=== PATIENT | male | born 1960 | race Caucasian/White ===

== ENCOUNTER 2021-04-08 06:05 | Emergency (ER) | payer OTHER ==
[~2021-04-08] VITALS: Ht 172.7 cm; Wt 81.7 kg
[2021-04-08] MEDS ORDERED: HYDR1TAB94 PO (08:06)
== END 2021-04-08 08:22 | disposition home or self-care (01) ==
LOC: ER 06:05
DX: K40.90 Unilateral inguinal hernia, without obstruction or gangrene, not specified as recurrent (principal); I11.0 Hypertensive heart disease with heart failure; I50.9 Heart failure, unspecified; Z88.8 Allergy status to other drugs, medicaments and biological substances
CPT/HCPCS: 36415; 76857; 96374; 96375; 99284-25; J2270; J2405

== ENCOUNTER 2021-04-08 16:26 | Inpatient (IN) | payer OTHER ==
[~2021-04-08] VITALS: Ht 175.3 cm; Wt 86.0 kg
[~2021-04-08 16:26] MED LIST: HYDR1TAB94 PO
[2021-04-08 17:27] LABS: Source, Urine Catheter
[2021-04-08 17:30] LABS: BASOPHILS ABSOLUTE AUTO 0.07 K/mm3 (0.00-0.23); BASOPHILS PERCENT AUTO 1 % (0-2); EOSINOPHILS ABSOLUTE AUTO 0.11 K/mm3 (0.00-0.68); EOSINOPHILS PERCENT AUTO 1 % (0-6); Hematocrit 36.7 % (37.0-53.0); Hemoglobin 12.4 g/dL (13.5-17.5); IMMATURE GRAN ABSOLUTE AUTO 0.04 K/mm3 (0.00-0.10); IMMATURE GRAN PERCENT AUTO 0 % (0-1); LYMPHOCYTES ABSOLUTE AUTO 0.99 K/mm3 (0.84-5.20); LYMPHOCYTES PERCENT AUTO 7 % (21-46); MONOCYTES ABSOLUTE AUTO 0.88 K/mm3 (0.16-1.47); MONOCYTES PERCENT AUTO 7 % (4-13); Mean Corpuscular HGB 28.6 pg (26.0-34.0); Mean Corpuscular HGB Conc 33.8 g/dL (31.5-36.5); Mean Corpuscular Volume 85 fL (80-100); Mean Platelet Volume 9.1 fL (9.1-12.4); NEUTROPHILS ABSOLUTE AUTO 11.26 K/mm3 (1.96-9.15); NEUTROPHILS PERCENT AUTO 84 % (41-73); Platelet Count 300 K/mm3 (150-400); RDW Coefficient Variation 15.1 % (11.7-14.2); RDW Standard Deviation 46.5 fL (35.1-46.3); Red Blood Cell Count 4.34 M/mm3 (4.30-5.90); White Blood Cell Count 13.35 K/mm3 (4.00-11.30)
[2021-04-08 17:34] LABS: Appearance, Urine Clear (Clear); Bilirubin, Urine Neg (Neg); Blood, Urine 4+ (Neg); Color, Urine Yellow (P-Yellow); Glucose Qualitative, Urine Neg (Neg); Ketones, Urine 1+ (Neg); Leukocyte Esterase, Urine Neg (Neg); Nitrite, Urine Neg (Neg); Protein, Urine 4+ (Neg); Urobilinogen, Urine NORM (Normal)
[2021-04-08 17:40] LABS: White Blood Cells, Urine 0-2 /hpf (0-5)
[2021-04-08 17:41] LABS: Bacteria Few /hpf; Hyaline Casts 0-2 /lpf (0-2); Squamous Epithelial Cells Rare /hpf (Few)
[2021-04-08 17:56] LABS: Anion Gap 11 mmol/L (6-16); Blood Urea Nitrogen 43 mg/dL (8-24); Bun/Creatinine Ratio 9.9 (12.0-20.0); CO2, Blood 20 mmol/L (21-32); Chloride, Blood 102 mmol/L (98-108); Creatinine, Blood 4.34 mg/dL (0.60-1.20); Glomerular Filtration Rate 14 (60-); Glucose, Blood 132 mg/dL (70-99); Potassium, Blood 3.4 mmol/L (3.5-5.5); Sodium, Blood 133 mmol/L (136-145)
[2021-04-08 17:58] LABS: Calcium, Blood <5.0 mg/dL (8.5-10.1)
[2021-04-08 18:19] LABS: Magnesium, Blood 2.3 mg/dL (1.6-2.4); Phosphorus, Blood 5.4 mg/dL (2.5-4.9)
[2021-04-08 22:38] LABS: Anion Gap 11 mmol/L (6-16); Blood Urea Nitrogen 44 mg/dL (8-24); Bun/Creatinine Ratio 9.9 (12.0-20.0); CHOL/HDL RATIO 3.4; CO2, Blood 21 mmol/L (21-32); Chloride, Blood 103 mmol/L (98-108); Cholesterol 160 mg/dL (50-200); Creatinine, Blood 4.43 mg/dL (0.60-1.20); Glomerular Filtration Rate 14 (60-); Glucose, Blood 114 mg/dL (70-99); HDL Cholesterol 47 mg/dL (>39); LDL/HDL RATIO 1.9; Low Density Lipoprotein Chol 89 mg/dL (0-110); Potassium, Blood 3.3 mmol/L (3.5-5.5); Sodium, Blood 135 mmol/L (136-145); Triglycerides 118 mg/dL (30-160); Very Low Density Lipoprot Chol 23 mg/dL (6-32)
[2021-04-08 23:00] LABS: Calcium, Blood 5.2 mg/dL (8.5-10.1)
[2021-04-09 04:31] LABS: BASOPHILS ABSOLUTE AUTO 0.06 K/mm3 (0.00-0.23); BASOPHILS PERCENT AUTO 0 % (0-2); EOSINOPHILS ABSOLUTE AUTO 0.15 K/mm3 (0.00-0.68); EOSINOPHILS PERCENT AUTO 1 % (0-6); Hematocrit 38.1 % (37.0-53.0); Hemoglobin 12.6 g/dL (13.5-17.5); IMMATURE GRAN ABSOLUTE AUTO 0.04 K/mm3 (0.00-0.10); IMMATURE GRAN PERCENT AUTO 0 % (0-1); LYMPHOCYTES ABSOLUTE AUTO 1.26 K/mm3 (0.84-5.20); LYMPHOCYTES PERCENT AUTO 9 % (21-46); MONOCYTES ABSOLUTE AUTO 1.04 K/mm3 (0.16-1.47); MONOCYTES PERCENT AUTO 7 % (4-13); Mean Corpuscular HGB 28.4 pg (26.0-34.0); Mean Corpuscular HGB Conc 33.1 g/dL (31.5-36.5); Mean Corpuscular Volume 86 fL (80-100); Mean Platelet Volume 9.2 fL (9.1-12.4); NEUTROPHILS ABSOLUTE AUTO 11.93 K/mm3 (1.96-9.15); NEUTROPHILS PERCENT AUTO 82 % (41-73); Platelet Count 300 K/mm3 (150-400); RDW Standard Deviation 47.3 fL (35.1-46.3); Red Blood Cell Count 4.44 M/mm3 (4.30-5.90); White Blood Cell Count 14.48 K/mm3 (4.00-11.30)
[2021-04-09 04:42] LABS: Bun/Creatinine Ratio 10.4 (12.0-20.0); Calcium, Blood 6.4 mg/dL (8.5-10.1); Creatinine, Blood 4.32 mg/dL (0.60-1.20); Potassium, Blood 3.2 mmol/L (3.5-5.5)
--- NOTE | 2021-04-09 07:29 | NUR ---
SHIFT SUMMARY PATIENT IS RESTING IN BED COMFORTABLY. BED IS IN LOW POSITION. CALL LIGHT IS IN REACH. THE PATIENT COMPLAINED OF DISCOMFORT IN THE SCROTUM AREA BUT DUE TO THE R INGUINAL HERNIA IT MOVED TO THE SCOTUM AND IT IS ENLARGED NOW. THE PATIENT'S VITALS WERE STABLE EXCEPT THE BLOOD PRESSURE. HIS BLOOD PRESSURE WAS TREATED WITH PRN MEDICATION WHICH HELP FOR AWHILE THEN HIS BLOOD PRESSURE STARTED CLIMBING AGAIN AND STAYED UP. THE PATIENT WAS ASYSMPTOMATIC AND SLEEPING MOST OF THE NIGHT. NO ACUTE CHANGES DURING THE NIGHT. THE PATIENT WAS A NEW ADMIT TO THE FLOOR AND HE WAS ORIENTED TO THE ROOM AND STAFF. THE PATIENT CURRENTLY HAS A HEALY CATHERTER HE COMPLAINED OF DISCOMFORT BUT THE STAT LOCK WAS MOVED TO HELP CREAT A LOOP AND PATIENT HAS NOT COMPLAINED OF PAIN AFTER THAT. THE PATIENT HAD VERY LOW CALCIUM WHICH WAS REPLACE. WILL CONTINUE TO MONITOR. REPORT WAS GIVEN TO DAY SHIFT RN.
--- NOTE | 2021-04-09 07:32 | NUR ---
04/08/21 2320 - DR MEYER WAS NOTIFED OF THE PATIENT'S CRITICALLY LOW CALCIUM OF 5.2. NEW ORDERS WERE PUT IN FOR CALCIUM AND POTASSIUM. 04/09/21 0425 - DR MEYER WAS NOTIFIED THE PATIENT WAS HYPERTENSIVE MOST OF THE NIGHT. SHE WAS INFORMED PRN 20MG OF HYDRALAZINE WAS ADMINISTERED WHICH HELPED FOR A WHILE THEN HIS BLOOD PRESSURE WENT BACK UP. ANOTHER 10MG WAS GIVEN AT 0310 WHICH DID DROPPED HIS BLOOD PRESSURE FROM 180 SYSTOLIC TO HIGH 160 SYSTOLIC. SHE STATED RN SHOULD RECHECK IN 30 MINUTES THEN ORDER A ONE TIME DOES OF 10MG HYDRALAZINE IF THE BLOOD PRESSURE IS NOT BELOW 160 SYSTOLIC. 04/09/21 0530 - THE RECHECK BLOOD PRESSURE WAS 170/102 A NEW ORDER OF HYDRALAZINE WAS ORDERED AND LATER GIVEN. BLOOD PRESSURE WAS IN THE LOW 160 SYSTOLIC BUT DID NOT GO GET LOWER THAN 160 SYSTOLIC DAY SHIFT RN WAS NOTIFIED.
[2021-04-09 08:51] LABS: U Amphetamine Screen Not Detected; U Barbituate Screen Not Detected; U Benzodiazapine Screen Not Detected; U Buprenorphine Screen Not Detected; U Cannabinoids Screen DETECTED; U Cocaine Screen Not Detected; U Methadone Screen Not Detected; U Methamphetamine Screen Not Detected; U Opiates Screen DETECTED; U Oxycodone Screen Not Detected; U Phencyclidine Screen Not Detected; U Propoxyphene Screen Not Detected
--- NOTE | 2021-04-09 11:16 | NUR ---
Echocardiogram completed.
--- NOTE | 2021-04-09 18:00 | NUR ---
SHIFT SUMMARY; ASSUMED CARE AT 0700, SLEEPS THROUGHT MOST OF DAY. WAKES FOR MEALS. A/A/0X4. RIGHT INGUINAL HERNIA NOTED WITH LARGLY SWOLLEN SCROTOM. HEALY CATH IN PLACE DRAINING TO GRAVITY. DR. WALKER ANSWERING SERVICE NOTIFIED OF SURGICAL CONSULT ORDERED. BP IMPROVED FROM PREVIOUS SHIFT. ORAL BP MEDS STARTED THIS AM. IV FLUIDS INFUSING AT 75ML/HR. WILL CONTINUE TO MONITOR AND TREAT UNTIL CHANGE OF SHIFT.
[2021-04-09 18:05] LABS: Albumin, Blood 2.8 g/dL (3.4-5.0); Anion Gap 11 mmol/L (6-16); Blood Urea Nitrogen 43 mg/dL (8-24); CO2, Blood 21 mmol/L (21-32); Chloride, Blood 108 mmol/L (98-108); Creatinine, Blood 4.28 mg/dL (0.60-1.20); Glomerular Filtration Rate 14 (60-); Glucose, Blood 98 mg/dL (70-99); Magnesium, Blood 2.3 mg/dL (1.6-2.4); Phosphorus, Blood 4.8 mg/dL (2.5-4.9); Potassium, Blood 3.2 mmol/L (3.5-5.5); Sodium, Blood 140 mmol/L (136-145)
[2021-04-10 04:09] LABS: BASOPHILS ABSOLUTE AUTO 0.04 K/mm3 (0.00-0.23); BASOPHILS PERCENT AUTO 0 % (0-2); EOSINOPHILS ABSOLUTE AUTO 0.15 K/mm3 (0.00-0.68); EOSINOPHILS PERCENT AUTO 1 % (0-6); Hematocrit 35.1 % (37.0-53.0); Hemoglobin 11.5 g/dL (13.5-17.5); IMMATURE GRAN ABSOLUTE AUTO 0.04 K/mm3 (0.00-0.10); IMMATURE GRAN PERCENT AUTO 0 % (0-1); LYMPHOCYTES ABSOLUTE AUTO 1.12 K/mm3 (0.84-5.20); LYMPHOCYTES PERCENT AUTO 11 % (21-46); MONOCYTES PERCENT AUTO 9 % (4-13); Mean Corpuscular HGB 28.6 pg (26.0-34.0); Mean Corpuscular HGB Conc 32.8 g/dL (31.5-36.5); Mean Corpuscular Volume 87 fL (80-100); Mean Platelet Volume 9.1 fL (9.1-12.4); NEUTROPHILS ABSOLUTE AUTO 8.32 K/mm3 (1.96-9.15); NEUTROPHILS PERCENT AUTO 79 % (41-73); Platelet Count 245 K/mm3 (150-400); RDW Coefficient Variation 15.5 % (11.7-14.2); RDW Standard Deviation 49.7 fL (35.1-46.3); Red Blood Cell Count 4.02 M/mm3 (4.30-5.90); White Blood Cell Count 10.57 K/mm3 (4.00-11.30)
[2021-04-10 04:28] LABS: Albumin, Blood 2.6 g/dL (3.4-5.0); Anion Gap 9 mmol/L (6-16); Blood Urea Nitrogen 44 mg/dL (8-24); Bun/Creatinine Ratio 10.9 (12.0-20.0); CO2, Blood 20 mmol/L (21-32); Calcium, Blood 6.1 mg/dL (8.5-10.1); Chloride, Blood 111 mmol/L (98-108); Creatinine, Blood 4.03 mg/dL (0.60-1.20); Glomerular Filtration Rate 15 (60-); Glucose, Blood 97 mg/dL (70-99); Magnesium, Blood 2.3 mg/dL (1.6-2.4); Phosphorus, Blood 4.7 mg/dL (2.5-4.9); Potassium, Blood 3.2 mmol/L (3.5-5.5); Sodium, Blood 140 mmol/L (136-145)
--- NOTE | 2021-04-10 06:16 | NUR ---
SHIFT SUMMARY PATIENT IS RESTING IN BED COMFORTABLY IN BED. BED IS IN LOW POSITION. CALL LIGHT IS IN REACH. HEALY CATHETER IS IN PLACE AND DRAINING TO GRAVITY. COMPLAINS OF DISCOMFORT DUE TO SWOLLEN SCROTUM. VITAL WERE STABLE EXCEPT HIS BLOOD PRESSURE ON ORAL MEDICATION WHICH HELPED A LITTLE BIT BUT RN NEEDED TO GIVE IV PRN BLOOD PRESSURE MEDICATION WHICH HELPED A LITTLE BIT. NO ACUTE EVENTS DURING THE NIGHT. STILL GETTING GENTLE HYDARTION. PATIENT DID WELL DURING THE NIGHT NO COMPLAINTS OF PAIN ONLY DISCOMFORT FROM ENLARGED SCROTUM. WILL CONTINUE TO MONITOR. REPORT WILL BE GIVEN TO DAY SHIFT RN.
--- NOTE | 2021-04-10 09:10 | NUR ---
ASSUMED CARE OF PATIENT AT APPROX 0700. ELEVATED BP NOTED, OTHER VSS. PT LEFT A/C PIV INFILTRATED; REMOVED AND ICED; NOTIFIED PHARMACY. NEW IV PLACED GONZALEZ; RUNNING KCL AT 1/2 RATE CONCURRENT WITH NS. REPORT GIVE[facility]merica TORRES RN ASSUMING CARE OF PATIENT.
--- NOTE | 2021-04-10 16:45 | NUR ---
SHIFT SUMMARY THIS RN ASSUMED CARE AT 0830 FROM LORETTA PADILLA. PATIENT IS A/OX4. VSS. PATIENT REPORTS NO PAIN, CHEST PAIN, OR SOB. PATIENT HAS A SWOLLEN SCROTUM. HEALY CATH IN PLACE DRAINING WITH GRAVITY, YELLOW. BED IN LOWEST POSITION AND CALL LIGHT WITHIN REACH. WILL CONTINUE TO MONITOR AND PROVIDE CARE UNTIL HAND OFF.
[2021-04-11 04:48] LABS: Hematocrit 34.9 % (37.0-53.0); Hemoglobin 11.4 g/dL (13.5-17.5); Mean Corpuscular HGB 28.9 pg (26.0-34.0); Mean Corpuscular HGB Conc 32.7 g/dL (31.5-36.5); Mean Corpuscular Volume 89 fL (80-100); Mean Platelet Volume 9.4 fL (9.1-12.4); Platelet Count 242 K/mm3 (150-400); RDW Coefficient Variation 15.7 % (11.7-14.2); RDW Standard Deviation 51.2 fL (35.1-46.3); Red Blood Cell Count 3.94 M/mm3 (4.30-5.90); White Blood Cell Count 11.11 K/mm3 (4.00-11.30)
[2021-04-11 05:24] LABS: Albumin, Blood 2.5 g/dL (3.4-5.0); Albumin/Globulin Ratio 0.7 (0.8-1.8); Bilirubin, Total 0.6 mg/dL (0.1-1.0); Bun/Creatinine Ratio 11.1 (12.0-20.0); Calcium, Blood 6.4 mg/dL (8.5-10.1); Creatinine, Blood 3.8 mg/dL (0.60-1.20); Globulin, Blood 3.7 g/dL (2.2-4.0); Phosphorus, Blood 3.5 mg/dL (2.5-4.9); Potassium, Blood 3.5 mmol/L (3.5-5.5); Total Protein, Blood 6.2 g/dL (6.4-8.2)
--- NOTE | 2021-04-11 06:49 | NUR ---
SHIFT SUMMARY PATIENT IS RESTING IN BED COMFORTABLY IN BED. BED IS IN LOW POSITION. CALL LIGHT IS IN REACH. HEALY CATHETER IS IN PLACE AND DRAINING TO GRAVITY. COMPLAINS OF DISCOMFORT DUE TO SWOLLEN SCROTUM. VITAL WERE STABLE EXCEPT HIS BLOOD PRESSURE ON ORAL MEDICATION WHICH HELPED A LITTLE BIT BUT RN NEEDED TO GIVE IV PRN BLOOD PRESSURE MEDICATION WHICH HELPED THIS MORNING. NO ACUTE EVENTS DURING THE NIGHT. STILL GETTING GENTLE HYDARTION. PATIENT DID WELL DURING THE NIGHT NO COMPLAINTS OF PAIN ONLY DISCOMFORT FROM ENLARGED SCROTUM. WILL CONTINUE TO MONITOR. REPORT WILL BE GIVEN TO DAY SHIFT RN.
--- NOTE | 2021-04-11 14:05 | NUR ---
Met pt .i bed resting reports doing better prayed for pt.
--- NOTE | 2021-04-11 17:59 | NUR ---
SHIFT SUMMARY PT HAS RESTED IN BED ALL DAY. PT HAS BEEN CRYING OUT FOR HELP AND MOANING CONSISTENTLY THROUGHOUT THE DAY. WHEN ASKED ABOUT PAIN, PT WILL DENY ANY PAIN, WHEN ASKED ABOUT SPECIFIC LOCATIONS OF PAIN, PT WILL STATE THAT "THIS TUBE HURTS" REFERENCING THE HEALY CATHETER. PT HAS CONSISTENTLY REPOSITIONED SELF IN BED. PT HAS CONSISTENTLY BEEN HYPERTENSIVE, MAX OF 179/89, LOW OF 127/70 AFTER TREATMENT PER EMAR. ALL OTHER VITAL SIGNS STABLE.
[2021-04-12 05:14] LABS: Hematocrit 36.5 % (37.0-53.0); Hemoglobin 11.7 g/dL (13.5-17.5); Mean Corpuscular HGB 28.7 pg (26.0-34.0); Mean Corpuscular HGB Conc 32.1 g/dL (31.5-36.5); Mean Corpuscular Volume 90 fL (80-100); Mean Platelet Volume 9.7 fL (9.1-12.4); Platelet Count 248 K/mm3 (150-400); RDW Coefficient Variation 15.8 % (11.7-14.2); RDW Standard Deviation 51.7 fL (35.1-46.3); Red Blood Cell Count 4.07 M/mm3 (4.30-5.90)
[2021-04-12 05:52] LABS: Albumin, Blood 2.6 g/dL (3.4-5.0); Anion Gap 10 mmol/L (6-16); Blood Urea Nitrogen 42 mg/dL (8-24); Bun/Creatinine Ratio 12.5 (12.0-20.0); CO2, Blood 18 mmol/L (21-32); Calcium, Blood 6.8 mg/dL (8.5-10.1); Chloride, Blood 115 mmol/L (98-108); Creatinine, Blood 3.35 mg/dL (0.60-1.20); Ferritin, Serum 150 ng/mL (26-388); Glomerular Filtration Rate 19 (60-); Glucose, Blood 102 mg/dL (70-99); Iron Serum 36 ug/dL (65-175); Magnesium, Blood 1.8 mg/dL (1.6-2.4); Percent Saturation 20.5 % (20.0-50.0); Phosphorus, Blood 3.2 mg/dL (2.5-4.9); Potassium, Blood 3.6 mmol/L (3.5-5.5); Sodium, Blood 143 mmol/L (136-145); Total Iron Binding Capacity 176 ug/dL (250-450)
--- NOTE | 2021-04-12 07:51 | NUR ---
SHIFT SUMMARY PATIENT IS RESTING IN BED COMFORTABLY IN BED. BED IS IN LOW POSITION. CALL LIGHT IS IN REACH. HEALY CATHETER IS IN PLACE AND DRAINING TO GRAVITY. COMPLAINS OF DISCOMFORT DUE TO SWOLLEN SCROTUM. VITAL WERE STABLE EXCEPT HIS BLOOD PRESSURE ON ORAL MEDICATION WHICH HELPED A LITTLE BIT BUT RN NEEDED TO GIVE IV PRN BLOOD PRESSURE MEDICATION WHICH HELPED THIS MORNING. NO ACUTE EVENTS DURING THE NIGHT. STILL GETTING GENTLE HYDARTION. PATIENT DID WELL DURING THE NIGHT NO COMPLAINTS OF PAIN ONLY DISCOMFORT FROM ENLARGED SCROTUM AND STAT LOCK WAS REPOSITIONED WHICH PATIENT STATED HELPED. WILL CONTINUE TO MONITOR. REPORT WILL BE GIVEN TO DAY SHIFT RN.
--- NOTE | 2021-04-13 03:50 | NUR ---
RECEIVED PT IN BED AAO. C/O OF PAIN TO SCROTUM. TYLENOL GIVEN WITH GOOD EFFECT. HOWEVER, PT C/O OF INCREASED PAIN AFTER AMBULATION TO BATHROOM. HYDROCODONE GIVEN WITH GOOD EFFECT. IVF PATENTLY INFUSING. MONET PATENT. PT IS LOUD, IMPULSIVE, AND ANGRY AT TIMES. CALL LIGHT WITHIN REACH. SAFETY MEASURES MAINTAINED.
[2021-04-13 04:13] LABS: Hematocrit 35.4 % (37.0-53.0); Hemoglobin 11.2 g/dL (13.5-17.5); Mean Corpuscular HGB 28.4 pg (26.0-34.0); Mean Corpuscular HGB Conc 31.6 g/dL (31.5-36.5); Mean Corpuscular Volume 90 fL (80-100); Mean Platelet Volume 9.7 fL (9.1-12.4); Platelet Count 252 K/mm3 (150-400); RDW Coefficient Variation 15.6 % (11.7-14.2); RDW Standard Deviation 51.8 fL (35.1-46.3); Red Blood Cell Count 3.94 M/mm3 (4.30-5.90); White Blood Cell Count 9.97 K/mm3 (4.00-11.30)
[2021-04-13 04:34] LABS: Albumin, Blood 2.5 g/dL (3.4-5.0); Albumin/Globulin Ratio 0.8 (0.8-1.8); Bilirubin, Total 0.4 mg/dL (0.1-1.0); Bun/Creatinine Ratio 11.9 (12.0-20.0); Calcium, Blood 6.2 mg/dL (8.5-10.1); Creatinine, Blood 3.36 mg/dL (0.60-1.20); Globulin, Blood 3.2 g/dL (2.2-4.0); Magnesium, Blood 1.8 mg/dL (1.6-2.4); Phosphorus, Blood 3.2 mg/dL (2.5-4.9); Potassium, Blood 3.8 mmol/L (3.5-5.5); Total Protein, Blood 5.7 g/dL (6.4-8.2)
--- NOTE | 2021-04-13 18:22 | NUR ---
PT CAN BE VERY ANGRY,IMPULSIVE AT TIME,PT C/O PAIN WANTS THE HEALY OUT,CALLED ,PT HEALY REMOVED THIS AM,PT VOID X4 IN THE AM AFTER REMOVING THE HEALY.PT INDEP.IN THE ROOM.PT IN BED,CALL LIGJANETH IN REACH WILL CONTINUE TO MONITOR.
--- NOTE | 2021-04-14 03:34 | NUR ---
AAO. RESP UNLABORED. SCROTUM REMAINS SWOLLEN. MEDICATED FOR PAIN WITH GOOD EFFECT. IVF PATENTLY INFUSING. VOIDING. DENIES ANY DISCOMFORT WITH URINATION. FLAT AFFECT. IRRITABLE. CALL LIGHT WITHIN REACH. NO ACUTE CHANGE IN STATUS NOTED.
[2021-04-14 05:12] LABS: Hematocrit 34.6 % (37.0-53.0); Hemoglobin 11.1 g/dL (13.5-17.5); Mean Corpuscular HGB 28.8 pg (26.0-34.0); Mean Corpuscular HGB Conc 32.1 g/dL (31.5-36.5); Mean Corpuscular Volume 90 fL (80-100); Mean Platelet Volume 9.9 fL (9.1-12.4); Platelet Count 234 K/mm3 (150-400); RDW Coefficient Variation 15.8 % (11.7-14.2); RDW Standard Deviation 51.7 fL (35.1-46.3); Red Blood Cell Count 3.85 M/mm3 (4.30-5.90); White Blood Cell Count 9.49 K/mm3 (4.00-11.30)
[2021-04-14 05:41] LABS: Albumin, Blood 2.7 g/dL (3.4-5.0); Anion Gap 9 mmol/L (6-16); Blood Urea Nitrogen 41 mg/dL (8-24); Bun/Creatinine Ratio 12.3 (12.0-20.0); CO2, Blood 19 mmol/L (21-32); Calcium, Blood 7.1 mg/dL (8.5-10.1); Chloride, Blood 113 mmol/L (98-108); Creatinine, Blood 3.33 mg/dL (0.60-1.20); Glomerular Filtration Rate 19 (60-); Glucose, Blood 90 mg/dL (70-99); Magnesium, Blood 1.7 mg/dL (1.6-2.4); Phosphorus, Blood 3.3 mg/dL (2.5-4.9); Sodium, Blood 141 mmol/L (136-145)
--- NOTE | 2021-04-14 18:02 | NUR ---
PT C/O PAIN,MEDICATED PER EMAR.PT UP TO CHAIR,PT HAS NO ACUTE EVENTS T/O SHIFT.PT MOOD WAS MUCH BETTER TODAY.PT AAOX4.CALL LIGHT IN REACH WILL CONTINUE TO MONITOR.
--- NOTE | 2021-04-15 03:15 | NUR ---
SHIFT SUMMARY PATIENT HAD NO ACUTE CHANGES OBSERVED. AXOX 3 AND INDEPENDENT IN THE ROOM. PIV REMAINS INTACT. NS INFUSING AT 50mL/HR. DENIES CHEST PAIN, SOB, AND N/V. HYPERTENSIVE AND SCHEDULE PO APRESOLINE GIVEN PER EMAR. CALL LIGHT IN REACH. BED IN LOWEST POSITION. WILL CONTINUE TO MONITOR UNTIL DAY SHIFT NURSE ASSUMES CARE.
[2021-04-15 04:47] LABS: Hematocrit 34.3 % (37.0-53.0); Hemoglobin 10.8 g/dL (13.5-17.5)
[2021-04-15 05:13] LABS: Albumin, Blood 2.7 g/dL (3.4-5.0); Anion Gap 8 mmol/L (6-16); Blood Urea Nitrogen 41 mg/dL (8-24); Bun/Creatinine Ratio 12.5 (12.0-20.0); CO2, Blood 20 mmol/L (21-32); Calcium, Blood 7.8 mg/dL (8.5-10.1); Chloride, Blood 113 mmol/L (98-108); Creatinine, Blood 3.28 mg/dL (0.60-1.20); Glomerular Filtration Rate 19 (60-); Glucose, Blood 94 mg/dL (70-99); Magnesium, Blood 1.8 mg/dL (1.6-2.4); Phosphorus, Blood 3.7 mg/dL (2.5-4.9); Potassium, Blood 4.3 mmol/L (3.5-5.5); Sodium, Blood 141 mmol/L (136-145)
[2021-04-15] MEDS ORDERED: AMLO5 PO (10:52)
[2021-04-15] MEDS ORDERED: ASPI81CH PO (10:52)
[2021-04-15] MEDS ORDERED: CALCITRIOL0.5 MC1 PO (10:53)
[2021-04-15] MEDS ORDERED: TUMS500 MG PO (10:54)
[2021-04-15] MEDS ORDERED: CATAPRES0.1 MG PO (10:54)
[2021-04-15] MEDS ORDERED: HYDRA25 PO (10:55)
[2021-04-15] MEDS ORDERED: METO25 PO (10:56)
[2021-04-15] MEDS ORDERED: SODBIC650 PO (10:57)
[2021-04-15] MEDS ORDERED: TAMS.4ER PO (10:57)
--- NOTE | 2021-04-15 11:29 | NUR ---
DISCHARGE DISCHARGE INSTRUCTIONS, MEDICATION LIST AND FOLLOW UP APPOINTMENT REVIEWED WITH PT. PT VERBALLY INDICATED UNDERSTANDING OF ALL INSTRUCTIONS RECEIVED. HE ALSO RELAYED THAT HE HAS AND APPOINTMENT WITH DR MEAD ON April AT 1400. TREMAINE CALLED AND PT ESCORTED TO PT ENTRANCE VIA W/C BY BREE
== END 2021-04-15 11:40 | disposition home or self-care (01) | DRG 683 ==
LOC: ER 16:26 → PCU 20:13 → MEDS 04-12 17:38
PROVIDERS: Emergency Medicine; Internal Medicine; Internal Medicine Nephrology; ADMIT Family Medicine
DX: N17.9 Acute kidney failure, unspecified (principal); G45.9 Transient cerebral ischemic attack, unspecified; I16.1 Hypertensive emergency; I13.2 Hypertensive heart and chronic kidney disease with heart failure and with stage 5 chronic kidney disease, or end stage renal disease; E87.2 Acidosis; N13.9 Obstructive and reflux uropathy, unspecified; N18.5 Chronic kidney disease, stage 5; N25.81 Secondary hyperparathyroidism of renal origin; E87.6 Hypokalemia; E86.9 Volume depletion, unspecified; I50.9 Heart failure, unspecified; E83.51 Hypocalcemia; Z71.6 Tobacco abuse counseling; N49.2 Inflammatory disorders of scrotum; D72.829 Elevated white blood cell count, unspecified; N28.1 Cyst of kidney, acquired; D63.1 Anemia in chronic kidney disease; K40.90 Unilateral inguinal hernia, without obstruction or gangrene, not specified as recurrent; M45.0 Ankylosing spondylitis of multiple sites in spine; Z79.899 Other long term (current) drug therapy
CPT/HCPCS: 36415; 51702; 51798; 70450; 74176; 76770; 80048; 80053; 80061; 80069; 81001; 82330; 82728; 83540; 83550; 83735; 84100; 85014; 85018; 85025; 85027; 93005; 93010; 93306; 93880; 96365; 96366; 96375; 99285-25; A9270; C1751; J0360; J0610; J0696; J1170; J1644; J3010; J3480; J7030

== ENCOUNTER 2021-08-09 07:14 | Day surgery (SDC) | payer OTHER ==
[~2021-08-09] VITALS: Ht 167.6 cm; Wt 91.0 kg
[~2021-08-09 07:14] MED LIST changes: +AMLO5 PO; +ASPI81CH PO; +ATOR10 PO; +CALCITRIOL0.5 MC1 PO; +CATAPRES0.1 MG PO; +Carvedilol12.5 MG PO; +Clopidogrel Bis75 MG PO; +FURO80 PO; +HYDRA25 PO; +METO25 PO; +POTA10T PO; +SODBIC650 PO; +TAMS.4ER PO; +TUMS500 MG PO
[2021-08-09 07:56] LABS: Hematocrit 37.5 % (37.0-53.0); Hemoglobin 12.2 g/dL (13.5-17.5); Mean Corpuscular HGB 28.8 pg (26.0-34.0); Mean Corpuscular HGB Conc 32.5 g/dL (31.5-36.5); Mean Corpuscular Volume 88 fL (80-100); Mean Platelet Volume 9.5 fL (9.1-12.4); Platelet Count 195 K/mm3 (150-400); RDW Coefficient Variation 14.6 % (11.7-14.2); RDW Standard Deviation 47.2 fL (35.1-46.3); Red Blood Cell Count 4.24 M/mm3 (4.30-5.90); White Blood Cell Count 10.58 K/mm3 (4.00-11.30)
[2021-08-09 08:08] LABS: Bun/Creatinine Ratio 11.2 (12.0-20.0); Calcium, Blood 9.4 mg/dL (8.5-10.1); Creatinine, Blood 4.38 mg/dL (0.60-1.20); Potassium, Blood 3.5 mmol/L (3.5-5.5)
[2021-08-09 08:09] LABS: International Normalized Ratio 0.99; Prothrombin Time Results 10.4 Sec (9.7-11.5)
[2021-08-09 09:13] LABS: Influenza A, PCR NEGATIVE (NEGATIVE); Influenza B, PCR NEGATIVE (NEGATIVE); Resp Syncytial Virus, PCR NEGATIVE (NEGATIVE); SARS-Cov-2 (COVID-19) PCR, MMC NEGATIVE (NEGATIVE)
--- NOTE | 2021-08-09 09:34 | NUR ---
PATIENT RETURNED FROM THE [facility] RELATIONS [facility]NAGER, SBAR RECEIVED FROM VALERIE GARCIA. PERMA CATH TO THE RIGHT UPPER CHEST WALL. DRESSING CDI. PATIENT PLACED ON THE MONITOR AND CALL LIGHT IN REACH. PATINET SLEEPY, BUT AROUSABLE TO VERBAL STIMULI, SIDE RAILS X 2. CONTINUE TO MONITOR.
--- NOTE | 2021-08-09 10:00 | NUR ---
LAKENET AWAKE, UP TO THE RESTROOM. BACK TO BED AND AND BREAKFAST TRAY SERVED.
--- NOTE | 2021-08-09 10:06 | NUR ---
CALLED [employer] AND VERIFIED A PREARRANGED [facility] FOR THE PATIENT THAT WILL BE AT THE [facility] ENTRANCE AT 1100.
--- NOTE | 2021-08-09 10:16 | NUR ---
ESE DOES NOT HAVE PATIENT ON LIST TO START DIALYSIS, I NOTIFIED DR. MEAD'S OFFICE THAT THE PERMA CATH WAS PLACED AND READY FOR USE. THEY WILL MAKE ARRNAGEMENTS FOR THE PAITENT AND CONTACT THE PATIENT WHEN DIALYSIS IS TO START.
--- NOTE | 2021-08-09 10:44 | NUR ---
TAINA IS UP AND DRESSED SELF. GATHERED ALL BELONGINGS, REVIEWED DISCHARGE INSTRUCTIONS WITH THE PATIENT AND GAVE COPIES TO THE PATIENT. PIV REMOVED FROM THE LEFT FOREARM ADN PRESSURE DRESSING APPLIED. PATIENT WHEELCHAIRED TO THE BLYTHE ENTRANCE TO MEET WITH WEL[facility]E CENTER ATTENDANT. DISCHARGED HOME.
== END 2021-08-09 11:30 | disposition home or self-care (01) ==
LOC: MHTC 07:14
PROVIDERS: Radiology Diagnostic Radiology
DX: I12.0 Hypertensive chronic kidney disease with stage 5 chronic kidney disease or end stage renal disease (principal); N18.6 End stage renal disease; I25.10 Atherosclerotic heart disease of native coronary artery without angina pectoris; E78.5 Hyperlipidemia, unspecified; F17.210 Nicotine dependence, cigarettes, uncomplicated
CPT/HCPCS: 0241U; 36561; 76937; 77001; 80048; 85027; 85610; 93005; 93010; 99152; C1750; C1769; C1894; J1644; J2250; J3010; J7030; J7040

== ENCOUNTER 2022-09-22 | Emergency (ER) | payer OTHER ==
[~2022-09-22] VITALS: Ht 167.6 cm; Wt 86.2 kg
[2022-09-22 04:30] VITALS: BP 188/99
== END 2022-09-22 04:35 | disposition home or self-care (01) ==
LOC: ER
DX: K40.90 Unilateral inguinal hernia, without obstruction or gangrene, not specified as recurrent (principal); I11.0 Hypertensive heart disease with heart failure; I50.9 Heart failure, unspecified; D64.9 Anemia, unspecified; Z86.73 Personal history of transient ischemic attack (TIA), and cerebral infarction without residual deficits; Z79.899 Other long term (current) drug therapy
CPT/HCPCS: 99284

== ENCOUNTER 2022-10-20 07:11 | Inpatient (IN) | payer OTHER ==
[2022-10-20] VITALS (16 sets, daily range): BP systolic 149–202; BP diastolic 75–130
[~2022-10-20] VITALS: Ht 167.6 cm; Wt 77.8 kg
[2022-10-20 08:21] LABS: BASOPHILS ABSOLUTE AUTO 0.02 K/mm3 (0.00-0.23); BASOPHILS PERCENT AUTO 0 % (0-2); EOSINOPHILS ABSOLUTE AUTO 0.19 K/mm3 (0.00-0.68); EOSINOPHILS PERCENT AUTO 1 % (0-6); Hematocrit 32.5 % (37.0-53.0); Hemoglobin 10.2 g/dL (13.5-17.5); IMMATURE GRAN ABSOLUTE AUTO 0.05 K/mm3 (0.00-0.10); IMMATURE GRAN PERCENT AUTO 0 % (0-1); LYMPHOCYTES ABSOLUTE AUTO 0.89 K/mm3 (0.84-5.20); LYMPHOCYTES PERCENT AUTO 7 % (21-46); MONOCYTES ABSOLUTE AUTO 0.77 K/mm3 (0.16-1.47); MONOCYTES PERCENT AUTO 6 % (4-13); Mean Corpuscular HGB 29.7 pg (26.0-34.0); Mean Corpuscular HGB Conc 31.4 g/dL (31.5-36.5); Mean Corpuscular Volume 95 fL (80-100); Mean Platelet Volume 9.8 fL (9.1-12.4); NEUTROPHILS ABSOLUTE AUTO 11.35 K/mm3 (1.96-9.15); NEUTROPHILS PERCENT AUTO 86 % (41-73); Platelet Count 205 K/mm3 (150-400); RDW Coefficient Variation 16.4 % (11.7-14.2); Red Blood Cell Count 3.44 M/mm3 (4.30-5.90); White Blood Cell Count 13.27 K/mm3 (4.00-11.30)
[2022-10-20 08:36] LABS: Albumin, Blood 2.9 g/dL (3.4-5.0); Albumin/Globulin Ratio 0.8 (0.8-1.8); Bilirubin, Total 0.6 mg/dL (0.1-1.0); Bun/Creatinine Ratio 10.8 (12.0-20.0); Calcium, Blood 5.3 mg/dL (8.5-10.1); Creatinine, Blood 7.72 mg/dL (0.60-1.20); Globulin, Blood 3.7 g/dL (2.2-4.0); Potassium, Blood 4.1 mmol/L (3.5-5.5); Total Protein, Blood 6.6 g/dL (6.4-8.2)
[2022-10-20 12:27] LABS: Bun/Creatinine Ratio 10.6 (12.0-20.0); Calcium, Blood 5.5 mg/dL (8.5-10.1); Creatinine, Blood 7.76 mg/dL (0.60-1.20); Potassium, Blood 4.1 mmol/L (3.5-5.5)
[2022-10-20 13:47] LABS: Bun/Creatinine Ratio 10.9 (12.0-20.0); Calcium, Blood 5.2 mg/dL (8.5-10.1); Creatinine, Blood 7.79 mg/dL (0.60-1.20); Potassium, Blood 3.9 mmol/L (3.5-5.5)
--- NOTE | 2022-10-20 18:21 | NUR ---
ADMIT: PT ARRIVED TO MEDICAL FLOOR AT 1600 VIA GURNEY. PT WAS ABLE TO TRANSFER SELF TO BED. PT STARTED DIALYSIS FOR THE DAY SHORTLY AFTER ARRIVAL. PT B/P VERY ELEVATED. PT IN PAIN IN BACK. TYLENOL GIVEN PER EMAR. PT UNABLE TO TELL ME HOW HE HANDLES CHRONIC PAIN AT HOME. PT HAS SEVERE SCROTAL EDEMA. SMALL SCAB ON BOTTOM. PT EXTREMELY DIRTY. PT STATES HE HAS NOT SHOWERED IN 3 MONTHS AND ONLY WILL TAKE BATHS. LAYERS OF DIRT ON PT. CALL LIGHT IN REACH. BED IN LOWEST POSITION. WILL CONTINUE TO MONITOR.
--- NOTE | 2022-10-20 22:01 | NUR ---
PT HAD A 7 SECOND RUN OF VTAC DISCUSSED WITH CHARGE NURSE. PT REPORTS NO SYMPOTOMS. WAS CONFUSED AND YELLING AT THE TIME OF EPISODE, HE CALMED DOWN UPON ENTERING THE ROOM.
[2022-10-21] VITALS (16 sets, daily range): BP systolic 100–207; BP diastolic 69–119
--- NOTE | 2022-10-21 03:05 | NUR ---
PT AGITATED AND RESTLESS CALLING OUT "HELP" EVERY 2-5 MINUTES, PROVIDER NOTIFIED ORDERS FOR TRAZADONE AND HALDOL GIVEN PER MAR. PT WAS EXTREMELY DIRTY, REGISTRATION COORDINATOR GAVE PT A SHOWER, CONTINUE POC
--- NOTE | 2022-10-21 05:12 | NUR ---
PT IS A&O2 CONFUSION AND AGITATION SINCE TRANSFER, YELLING OUT AND PUTTING THE CALL LIGHT ON EVERY 2-5 MINUTES THROUGHOUT THE SHIFT, PRN ORDER GIVEN FOR ZYPREXA, PT CONTINUES TO CALL NON STOP WHILE YELLING OUT FOR HELP, WILL NOT KEEP NASAL CANNULA OR FACE MASK ON REGARDLESS OF COMPLAINING OF SOB, 91-92 ON RA, CONTINUE POC
[2022-10-21 05:51] LABS: Hematocrit 30.7 % (37.0-53.0); Hemoglobin 9.8 g/dL (13.5-17.5)
[2022-10-21 06:18] LABS: Magnesium, Blood 2.5 mg/dL (1.6-2.4)
[2022-10-21 06:29] LABS: Albumin, Blood 2.6 g/dL (3.4-5.0); Anion Gap 10 mmol/L (6-16); Blood Urea Nitrogen 62 mg/dL (8-24); Bun/Creatinine Ratio 11.2 (12.0-20.0); CO2, Blood 28 mmol/L (21-32); Calcium, Blood 6.6 mg/dL (8.5-10.1); Chloride, Blood 100 mmol/L (98-108); Creatinine, Blood 5.53 mg/dL (0.60-1.20); Glomerular Filtration Rate 11 (60-); Glucose, Blood 117 mg/dL (70-99); Phosphorus, Blood 5.9 mg/dL (2.5-4.9); Potassium, Blood 3.9 mmol/L (3.5-5.5); Sodium, Blood 138 mmol/L (136-145)
--- NOTE | 2022-10-21 16:24 | NUR ---
SHIFT SUMMARY MR PALMER WENT TO DIALYSIS THIS AM. WAS UNABLE TO GET ECHO D/T TIMING OF DIALYSIS SO IT IS SCHEDULED FOR TOMORROW WITH DR SALINAS'S OKAY. ON TELEMETRY, SINUS ARYTHMIA AND EPISODES OF IN AND OUT OF AFIB, DR MÁRQUEZ AWARE. NO C/O CP. HE DOES C/O BACK PAIN, GIVEN TYLENOL WHICH HE SAID HELPED SOME. REPOSITIONED REGULARLY. HE SEEMS ANXIOUS, RAPID ABDOMINAL BREATHING THAT SLOWS WITH COACHING. PT CALLS OUT "HELP" FREQUENTLY, SOMETIMES C/O FEELING SOB, SOMETIMES THAT HE NEEDED HIS MEAL TRAY, SOMETIMES FOR COMFORT, SOMETIMES HE IS UNABLE TO REMEMBER WHY HE CALLED. HE SOMETIMES CALLS FOR HELP WHILE STAFF ARE AT HIS BEDSIDE. PT STANDS TO URINATE, REMINDED TO HAVE ASSISTANCE AT THE BEDSIDE BEFORE GETTING OUT OF BED, ABLE TO STAND WITH STAND BY ASSISTANCE. BED LOW, CALL LIGHT IN REACH. BED ALARM SET.
--- NOTE | 2022-10-21 20:19 | NUR ---
CRITICAL TROPONIN TRENDING UPWARD, NOW 134 WAS 78. CALLED RESULT TO W/NO NEW ORDERS RECIEVED.
[2022-10-21] MEDS ORDERED: MEGE40T PO (20:26)
[2022-10-21] MEDS ORDERED: CALCIUM CARBON200 M1 PO (20:27)
[2022-10-21 23:45] LABS: Source, Urine Foley catheter
[2022-10-21 23:49] LABS: Bilirubin, Urine Neg (Neg); Blood, Urine 3+ (Neg); Glucose Qualitative, Urine 1+ (Neg); Ketones, Urine Neg (Neg); Leukocyte Esterase, Urine 3+ (Neg); Nitrite, Urine Neg (Neg); Protein, Urine 3+ (Neg); Urobilinogen, Urine NORM (Normal)
[2022-10-21 23:51] LABS: Appearance, Urine Hazy (Clear); Color, Urine Yellow (P-Yellow)
--- NOTE | 2022-10-21 23:54 | NUR ---
RAN BLADDER SCAN DT PATIENT UNABLE TO VOID AFTER MULTIPLE ATTEMPTS. 272ML RETENTION NOTED. ZAYNAB Crooks RN CONTACTED DR. MEAD. ORDERED INDWELLING CATHETHER. INSERTED 14G COUDE CATHETHER WITH STERILE TECHNIQUE MAINTAINED. UA COLLECTED, CULTURE PENDING.
[2022-10-22] VITALS (18 sets, daily range): BP systolic 108–172; BP diastolic 46–112
[2022-10-22 00:01] LABS: Bacteria Mod /hpf; Red Blood Cells, Urine 0-2 /hpf (0-2); Squamous Epithelial Cells Not Seen /hpf (Few); White Blood Cells, Urine 25-50 /hpf (0-5)
--- NOTE | 2022-10-22 01:16 | NUR ---
PT CONT'S TO HAVE HIGH ANXIETY, CALLING CONSTANTLY INTO HALLS "HELP ME" AND HAS EVER CHANGING COMPLAINTS. HE NOW C/O URINARY MEATUS PAIN POST HEALY INSERTION. ALERTED W/NEW ORDER RECIEVED FOR XANAX 0.5MG PO Q8H PRN AND FENTANYL 25-50MCG IV Q4 PRN. 1ST DOSES PROVIDED OF BOTH, WILL MONITOR FOR EFFECT.
--- NOTE | 2022-10-22 03:54 | NUR ---
SHIFT SUMMARY PATIENT ADMIT FOR HYPOCALCEMIA, SOB. CARDIAC DIET. FACE MASK IN PLACE WITH 4LPM. WILL STAND W/URINAL AT START OF SHIFT. HAD TO PLACE HEALY DT URINARY RETENTION OF 272ML. ORDERED BY DR. MEAD. PATIENT WOULD NOT STOP PULLING AT CATHETER DEMANDING WE "TAKE IT OFF" RIGHT AWAY. PRN PAIN MEDS AND ANXIETY MEDS GIVEN TO FULL ABILITY WITH TO NO EFFECT. PATIENT UP ALL NIGHT SCREAMING AND REFUSING TO STAY IN BED, AND CONTINUING TO TRY TO PULL HIS HEALY OUT. EXPLAINED TO PATIENT WHY HE CAN NOT PULL ON HIS HEALY. PATIENT ENDED UP PULLING OUT HIS IV. PATIENT HAD CRITICAL TROPONIN LEVEL (134). SCHEDULED FOR ECG IN AM.
--- NOTE | 2022-10-22 04:20 | NUR ---
PT CALLING OUT CONSTANTLY DESPITE ATTEMPT TO ATTEND TO ALL CARE NEEDS. HE'S ANXIOUS/AGGITATED, PULLS AT HEALY CONTANTLY, DC'D OWN IV AND IS NONCOMPLIANT. HE ATTEMPTS OOB DESPITE REMINDERS AND DOESN'T FOLLOW INSTRUCTION SOON STAFF LEAVE ROOM. [employer] MONITORS CALLING STAFF FOR VARIOUS REASONS EVERY FEW MINUTES. NO AMOUNT OF EDUCATION OR REMINDERS HAS PROVEN EFFECTIVE. ZYPREXA, ATIVAN AND TYLENOL RECIEVED PRN FOR PAIN AND BEHAVIOR, WILL EVALUATE FOR EFFECT.
[2022-10-22 05:52] LABS: BASOPHILS ABSOLUTE AUTO 0.03 K/mm3 (0.00-0.23); BASOPHILS PERCENT AUTO 0 % (0-2); EOSINOPHILS ABSOLUTE AUTO 0.19 K/mm3 (0.00-0.68); EOSINOPHILS PERCENT AUTO 2 % (0-6); Hematocrit 29.9 % (37.0-53.0); Hemoglobin 9.3 g/dL (13.5-17.5); IMMATURE GRAN ABSOLUTE AUTO 0.04 K/mm3 (0.00-0.10); IMMATURE GRAN PERCENT AUTO 0 % (0-1); LYMPHOCYTES ABSOLUTE AUTO 1.32 K/mm3 (0.84-5.20); LYMPHOCYTES PERCENT AUTO 11 % (21-46); MONOCYTES ABSOLUTE AUTO 1.03 K/mm3 (0.16-1.47); MONOCYTES PERCENT AUTO 9 % (4-13); Mean Corpuscular HGB 29.1 pg (26.0-34.0); Mean Corpuscular HGB Conc 31.1 g/dL (31.5-36.5); Mean Corpuscular Volume 93 fL (80-100); Mean Platelet Volume 9.9 fL (9.1-12.4); NEUTROPHILS ABSOLUTE AUTO 9.57 K/mm3 (1.96-9.15); NEUTROPHILS PERCENT AUTO 79 % (41-73); Platelet Count 192 K/mm3 (150-400); RDW Coefficient Variation 15.9 % (11.7-14.2); RDW Standard Deviation 54.7 fL (35.1-46.3); White Blood Cell Count 12.18 K/mm3 (4.00-11.30)
--- NOTE | 2022-10-22 06:24 | NUR ---
PT REMAINS PREVIOUSLY DESCRIBED DESPITE PRN MEDS RECIEVED T/O NOCTE. ALERTED W/NEW ORDERS RECIEVED FOR WRIST RESTRAINTS.
[2022-10-22 06:32] LABS: Magnesium, Blood 2.3 mg/dL (1.6-2.4)
[2022-10-22 06:34] LABS: Albumin, Blood 2.6 g/dL (3.4-5.0); Anion Gap 7 mmol/L (6-16); Blood Urea Nitrogen 52 mg/dL (8-24); Bun/Creatinine Ratio 10.5 (12.0-20.0); CO2, Blood 29 mmol/L (21-32); Calcium, Blood 7.5 mg/dL (8.5-10.1); Chloride, Blood 97 mmol/L (98-108); Creatinine, Blood 4.93 mg/dL (0.60-1.20); Glomerular Filtration Rate 13 (60-); Glucose, Blood 123 mg/dL (70-99); Phosphorus, Blood 5.1 mg/dL (2.5-4.9); Potassium, Blood 3.6 mmol/L (3.5-5.5); Sodium, Blood 133 mmol/L (136-145)
--- NOTE | 2022-10-22 18:34 | NUR ---
SHIFT SUMMARY PT AWAKE AT START OF SHIFT, BUT CONFUSED AND AGITATED. PT IN WRIST RESTRAINTS D/T PULLING OUT FIRST HEALY CATH AND NOW ATTEMPTING TO PULL 2ND HEALY PLACED, WELL IV ACCESS. PT TAKEN DOWN AT 0800 FOR DIALYSIS, PER ORDERS. HOWEVER, PT SCREAMING AND UNCO-OP DURING DIALYSIS AND HAD TO HAVE TREATMENT STOPPED EARLY. DR MÁRQUEZ CALLED TO GO TO DIALYSIS RM TO ASSESS PT. NEW ORDERS PLACED. PT RETURNED TO RM. PT MEDICATED PER EMAR AND LATER CALMED DOWN. ECHO AND US DONE IN RM. PT NOT FULLY CO-OP DURING EITHER. PT FREQUENTLY ATTEMPTING TO PULL OUT HEALY. PT AGITATED AND UNDIRECTABLE. PT UNCO-OP AND AGITATED WHILE GLASSWARE DEFECT REPAIRER ATTEMPTING TO OBTAIN VS; UNABLE TO OBTAIN ACCURATE RESULTS. CALL LT IN REACH. BED ALARM ON FOR SAFETY.
[2022-10-22 21:27] LABS: PCO2 Arterial 52.9 mmHg (35-45); PO2 Arterial 293 mmHg (80-100); pH Blood Arterial 7.33 (7.35-7.45)
[2022-10-22 21:53] LABS: BASOPHILS ABSOLUTE AUTO 0.03 K/mm3 (0.00-0.23); BASOPHILS PERCENT AUTO 0 % (0-2); EOSINOPHILS ABSOLUTE AUTO 0.02 K/mm3 (0.00-0.68); EOSINOPHILS PERCENT AUTO 0 % (0-6); Hematocrit 30.3 % (37.0-53.0); Hemoglobin 9.2 g/dL (13.5-17.5); IMMATURE GRAN ABSOLUTE AUTO 0.06 K/mm3 (0.00-0.10); IMMATURE GRAN PERCENT AUTO 1 % (0-1); LYMPHOCYTES ABSOLUTE AUTO 0.36 K/mm3 (0.84-5.20); LYMPHOCYTES PERCENT AUTO 3 % (21-46); MONOCYTES ABSOLUTE AUTO 0.34 K/mm3 (0.16-1.47); MONOCYTES PERCENT AUTO 3 % (4-13); Mean Corpuscular HGB 28.8 pg (26.0-34.0); Mean Corpuscular HGB Conc 30.4 g/dL (31.5-36.5); Mean Corpuscular Volume 95 fL (80-100); Mean Platelet Volume 9.4 fL (9.1-12.4); NEUTROPHILS ABSOLUTE AUTO 10.12 K/mm3 (1.96-9.15); NEUTROPHILS PERCENT AUTO 93 % (41-73); Platelet Count 211 K/mm3 (150-400); RDW Coefficient Variation 15.7 % (11.7-14.2); RDW Standard Deviation 54.8 fL (35.1-46.3); Red Blood Cell Count 3.19 M/mm3 (4.30-5.90); White Blood Cell Count 10.93 K/mm3 (4.00-11.30)
[2022-10-22 22:15] LABS: Albumin, Blood 2.6 g/dL (3.4-5.0); Albumin/Globulin Ratio 0.7 (0.8-1.8); Bilirubin, Total 0.9 mg/dL (0.1-1.0); Bun/Creatinine Ratio 10.9 (12.0-20.0); Creatinine, Blood 4.88 mg/dL (0.60-1.20); Globulin, Blood 3.5 g/dL (2.2-4.0); Magnesium, Blood 2.6 mg/dL (1.6-2.4); Potassium, Blood 4.7 mmol/L (3.5-5.5); Total Protein, Blood 6.1 g/dL (6.4-8.2)
--- NOTE | 2022-10-22 22:25 | NUR ---
WHEN RETURNING TO MEDICAL FLOOR, ATTEMTED TO OBTAIN INFORMATION REGARDING FAMILY OF THIS PT. NOTHING WAS FOUND BUT A PRIOR ADMISSION BACK IN 2020 THAT STATED PT HAS 3 BROTHERS BUT IS UNWILLING TO GIVE OUT INFORMATION ON SAID BROTHERS. NOBODY TO CONTACT REGARDING INFORMATION/UPDATE ON PT.
--- NOTE | 2022-10-22 22:41 | NUR ---
TRANFERRED PT TO ICU 12 AFTER HAVING TO BE INTUBATED. PT WAS NON RESPONSIVE AT TIME OF TRANSFER. ALL BELONGINGS SENT WITH PT. 1999 DISCONTINUATION OF RESTRAINTS DOCUMENTED.
[2022-10-23] VITALS (95 sets, daily range): BP systolic 101–168; BP diastolic 71–117
[2022-10-23 01:47] LABS: BASOPHILS ABSOLUTE AUTO 0.02 K/mm3 (0.00-0.23); BASOPHILS PERCENT AUTO 0 % (0-2); EOSINOPHILS PERCENT AUTO 0 % (0-6); Hematocrit 29.8 % (37.0-53.0); Hemoglobin 9.3 g/dL (13.5-17.5); IMMATURE GRAN ABSOLUTE AUTO 0.17 K/mm3 (0.00-0.10); IMMATURE GRAN PERCENT AUTO 1 % (0-1); LYMPHOCYTES ABSOLUTE AUTO 0.78 K/mm3 (0.84-5.20); LYMPHOCYTES PERCENT AUTO 6 % (21-46); MONOCYTES ABSOLUTE AUTO 0.69 K/mm3 (0.16-1.47); MONOCYTES PERCENT AUTO 5 % (4-13); Mean Corpuscular HGB 29.8 pg (26.0-34.0); Mean Corpuscular HGB Conc 31.2 g/dL (31.5-36.5); Mean Corpuscular Volume 96 fL (80-100); Mean Platelet Volume 9.7 fL (9.1-12.4); NEUTROPHILS ABSOLUTE AUTO 12.29 K/mm3 (1.96-9.15); NEUTROPHILS PERCENT AUTO 88 % (41-73); Platelet Count 185 K/mm3 (150-400); RDW Coefficient Variation 15.9 % (11.7-14.2); RDW Standard Deviation 54.5 fL (35.1-46.3); Red Blood Cell Count 3.12 M/mm3 (4.30-5.90); White Blood Cell Count 13.95 K/mm3 (4.00-11.30)
[2022-10-23 02:07] LABS: Bun/Creatinine Ratio 10.7 (12.0-20.0); Calcium, Blood 9.2 mg/dL (8.5-10.1); Creatinine, Blood 5.04 mg/dL (0.60-1.20)
[2022-10-23 05:53] LABS: PCO2 Arterial 39.5 mmHg (35-45); PO2 Arterial 104 mmHg (80-100); pH Blood Arterial 7.43 (7.35-7.45)
--- NOTE | 2022-10-23 06:07 | NUR ---
PATIENT TRANSFERRED TO ICU AT 2054. ABLE TO FOLLOW SIMPLE COMMANDS. PATIENT NOT REQUIRING PROPOFOL. SA WITH STABLE BP. INTUBATED, ACVC 16/500/5/40%. OGT CLAMPED. HEALY PATENT AND IN PLACE. AMIO GTT INFUSING. CT HEAD AND CHEST COMPLETED. PATIENT UNABLE TO LAY HEAD FLAT, CAUSING DIFFICULTY IN GETTING CT OF HEAD.
--- NOTE | 2022-10-23 11:03 | NUR ---
SBT RT SWITCHED PT TO PS 12 AND PT'S RR WENT UP INTO THE 50S. SHE WAS ABLE TO CAPTAIN AIRLINE PILOT PT TO SLOW BREATHING MOMENTARILY, THEN RATE WENT RIGHT BACK UP. SPOKE WITH DR. POWELL ABOUT IT AND DECISION MADE TO LEAVE PT INTUBATED TODAY HE IS LIKELY GOING TO HAVE A HEART CATH TODAY AND WILL NEED DIALYSIS AFTER AND PT HAD TO BE TAKEN OFF DIALYSIS EARLY EYSTERDAY DUE TO AGITATION. DISCUSSED SEDATION WITH DR. POWELL PT IS NOT ANY. HE IS CALM WHEN UNDISTURBED, BUT WITH ANY ACTIVITY HE WAKES UP AND PULLS HARD AGAINST THE RESTRAINTS AND REACHES FOR THE ETT. DR. POWELL ORDERED PRECEDEX, SEE ORDERS.
--- NOTE | 2022-10-23 12:28 | NUR ---
REASSESSMENT PT REMAINS INTUBATED AND IS ON LOW DOSE PRECEDEX NOW. HE RESPONDS NOW TO TACTILE STIMULI. LUNGS ARE CLEAR, DIM IN THE BASES. SR, BP STABLE. AWAITING HEART CATH LATER TODAY. OG CLAMPED. HEALY WITH MINIMAL OUTPUT. CONTINUING TO MONITOR.
--- NOTE | 2022-10-23 15:27 | NUR ---
PT GETTING AGITATED, OPENING HIS EYES AND PULLING ON HIS RESTRAINTS. ADDRESSED HIS NEEDS AND CHECKED PERIPHERAL IV SITE. PRECEDEX WAS AT 05.MCG/KG/HR AND HR 65. DR. POWELL OK WITH PT BEING ON PROPOFOL SO SWITCHED PT TO PROPOFOL FOR BETTER SEDATION. CONTINUING TO MONITOR.
--- NOTE | 2022-10-23 17:04 | NUR ---
SHIFT SUMMARY PT REMAINED INTUBATED THIS SHIFT AND SEDATION STARTED TODAY FOR AGITATION. ATTEMPTED TO USE PRECEDEX FIRST, BUT PT WAS GETTIGNG ADEQUATE SEDATION SO SWITCHED PT TO PROPOFOL AND HE APPEARS MORE COMFORTABLE. HE STILL WAKES TO TACTILE STIMULI, BUT IS NOT AGITATED WHEN AWAKE. HIS LUNGS REMAIN CLEAR, SMALL MAT OF THIN YELLOW SECRETIONS FROM ETT. SR WITH PAC, BP STABLE. OG CLAMPED. HEALY WITH MINIMAL OUTPUT. PT JUST LEFT FOR CROSSING WATCHMAN. DIALYSIS NURSE NOTIFIED AND PLAN IS FOR PT TO HAVE DIALYSIS AFTER CROSSING WATCHMAN.
--- NOTE | 2022-10-23 18:33 | NUR ---
PT BACK FROM PATIENT SERVICES TECHNICIAN. TR BAND ON R RADIAL SITE. R FINGERS ARE PINK AND WARM. SITE IS SOFT WITH NO HEMATOMA. PLASTIC PARTS FABRICATOR AT THE BEDSIDE SETTING UP.
[2022-10-23 22:58] LABS: Source, Urine Foley catheter
[2022-10-23 23:09] LABS: Bilirubin, Urine Neg (Neg); Blood, Urine 4+ (Neg); Glucose Qualitative, Urine Neg (Neg); Ketones, Urine Neg (Neg); Leukocyte Esterase, Urine 3+ (Neg); Nitrite, Urine Neg (Neg); Protein, Urine 3+ (Neg); Urobilinogen, Urine NORM (Normal)
[2022-10-23 23:15] LABS: Appearance, Urine Hazy (Clear); Color, Urine Pale Yellow (P-Yellow)
[2022-10-23 23:19] LABS: Bacteria Many /hpf; Squamous Epithelial Cells Rare /hpf (Few)
[2022-10-24] VITALS (47 sets, daily range): BP systolic 104–144; BP diastolic 66–90
[2022-10-24 02:19] LABS: Hematocrit 27.7 % (37.0-53.0); Hemoglobin 8.8 g/dL (13.5-17.5)
[2022-10-24 02:40] LABS: Albumin, Blood 2.3 g/dL (3.4-5.0); Anion Gap 6 mmol/L (6-16); Blood Urea Nitrogen 30 mg/dL (8-24); Bun/Creatinine Ratio 8.4 (12.0-20.0); CO2, Blood 32 mmol/L (21-32); Calcium, Blood 7.7 mg/dL (8.5-10.1); Chloride, Blood 97 mmol/L (98-108); Creatinine, Blood 3.56 mg/dL (0.60-1.20); Glomerular Filtration Rate 19 (60-); Glucose, Blood 127 mg/dL (70-99); Magnesium, Blood 2.3 mg/dL (1.6-2.4); Phosphorus, Blood 3.5 mg/dL (2.5-4.9); Potassium, Blood 3.5 mmol/L (3.5-5.5); Sodium, Blood 135 mmol/L (136-145)
--- NOTE | 2022-10-24 06:08 | NUR ---
PATIENT OPENS EYES TO VOICE, FOLLOWS SIMPLE COMMANDS. SR WITH STABLE BP. INTUBATED 16/500/5/30%. OGT CLAMPED. HEALY IN PLACE AND PATENT. TR BAND DEFLATED AT 2030. AMIO GTT AND PROPOFOL INFUSING.
--- NOTE | 2022-10-24 14:26 | NUR ---
"Spiritual Care Visit | Pt. Request (via Eucaharistic Volunteer) Pt. is intubated but alert to voice and the presence of others, but can only non-verbally nod in response. Confirm with the Pt. that he would like this manager agriculture to prayer for him. Prayers of healing and confession are given on behalf of the Pt. With a nod, the Pt. displayed evidence of being agreeable to future spiritual care from this manager agriculture."
--- NOTE | 2022-10-24 16:12 | NUR ---
Case Conference: Called and spoke with pt's brother Jack. He agrees to be pt's decision-maker if patient is unable to make decisions regarding his care. He understands that pt is on a ventilator, and a full code by default. He states he is "good with that", and plans to call their other 3 brothers today to inform them of the pt's current situation. He states they haven't been as close as they used to be over the years, but still care deeply for each other. No changes made to pt's care at this time, as the current plan is appropriate.
--- NOTE | 2022-10-24 18:47 | NUR ---
SUMMARY PT INTUBATED AND SEDATED WITH PROPOFOL. PT IS LIGHTLY SEDATED. ABLE TO SPONT OPEN EYE'S, NODS YES OR NO, MAEW ON COMMAND, AND ABLE TO WRITE WITH PEN AND PAPER TO MAKE NEEDS KNOWN. TUBE FEEDING STARTED TODAY AND PT TOLERATING WELL. ONE DOSE OF DILAUDID GIVEN FOR PAIN. SOME MED CHANGES TODAY BY DR. ORTEGA AND DR. POWELL. NO OTHER CHANGES THIS SHIFT.
[2022-10-25] VITALS (42 sets, daily range): BP systolic 100–144; BP diastolic 55–97
--- NOTE | 2022-10-25 02:21 | NUR ---
PT HAS A KNOWN HX OF INGUINAL HERNIA W/STUDY DONE ON 10/22. SCROTAL SWELLING NOTED TO BE QUITE SEVERE WITH SOME MOVEMENT ON THE RIGHT THAT RESEMBELED PARISTALSIS. DR GUERRIER WAS NOTIFIED AND STATED THAT HE WOULD PASS ALONG TO DAY SHIFT. VS HAVE BEEN STABLE AND THERE HAVE BEEN NO ACUTE CHANGES IN PT CONDITION THIS SHIFT.
--- NOTE | 2022-10-25 02:33 | NUR ---
PT HAD 10 BEAT RUN OF WIDE COMPLEX TACHYCARDIA. DR GUERRIER WAS NOTIFIED. NO CHANGES TO PLAN OF CARE AT THIS TIME.
[2022-10-25 03:43] LABS: Hematocrit 28.3 % (37.0-53.0); Hemoglobin 8.9 g/dL (13.5-17.5)
[2022-10-25 04:02] LABS: Albumin, Blood 2.2 g/dL (3.4-5.0); Anion Gap 7 mmol/L (6-16); Blood Urea Nitrogen 44 mg/dL (8-24); Bun/Creatinine Ratio 8.5 (12.0-20.0); CO2, Blood 30 mmol/L (21-32); Calcium, Blood 7.1 mg/dL (8.5-10.1); Chloride, Blood 98 mmol/L (98-108); Creatinine, Blood 5.16 mg/dL (0.60-1.20); Glomerular Filtration Rate 12 (60-); Glucose, Blood 108 mg/dL (70-99); Magnesium, Blood 2.6 mg/dL (1.6-2.4); Phosphorus, Blood 4.5 mg/dL (2.5-4.9); Potassium, Blood 3.7 mmol/L (3.5-5.5); Sodium, Blood 135 mmol/L (136-145)
--- NOTE | 2022-10-25 06:40 | NUR ---
SHIFT SUMMERY PT HAD AN UNEVENTFUL SHIFT. VSS W/PROPOFOL FOR SEDATION. NO ACUTE DISTRESS THIS SHIFT.
--- NOTE | 2022-10-25 11:24 | NUR ---
PT EXTUBATED AT 1115 TO 3L NC. PT IS AWAKE, ASKING APPROPRIATE QUESTIONS, USING YANKOUR TO SUCTION OWN SECRETIONS, AND USING CALL LIGHT APPROPRIATELY.
--- NOTE | 2022-10-25 17:38 | NUR ---
SUMMARY PT EXTUBATED AT 1115. NOW ON RA SPO2. A/O X4. NO C/O PAIN OR CP. PASSED BEDSIDE SWALLOW EVAL AND NOW TOLERATING SOFT CARDIAC DIET. TAKING PILLS WITH WATER WITHOUT ISSUE. ABLE TO USE CALL LIGHT APPROPRIATELY. TOLERATED DIALYSIS WELL. NO SIGN OF DISTRESS.
--- NOTE | 2022-10-25 20:00 | NUR ---
ASSUMED CARE OF PT AT 1915. REPORT RECEIVED. PT SLEEPING UPON PRESENTATION. NO S/S DISTRESS. ROOM AIR MAINTAINING > 90 PERCENT SATURATIONA. VSS. WILL REVIEW CHART AND PLAN OF CARE FOR THIS PT.
--- NOTE | 2022-10-26 00:28 | NUR ---
REPORT GIVEN TO VALERIE MCKEON FOR PT TRANSFER TO ROOM 303 THIS NIGHT.
[2022-10-26 00:53] VITALS: BP 144/88
[2022-10-26 02:26] VITALS: BP 146/83
[2022-10-26 05:46] LABS: Hematocrit 32.1 % (37.0-53.0); Hemoglobin 10.1 g/dL (13.5-17.5)
[2022-10-26 06:05] LABS: Albumin, Blood 2.5 g/dL (3.4-5.0); Anion Gap 10 mmol/L (6-16); Blood Urea Nitrogen 35 mg/dL (8-24); Bun/Creatinine Ratio 8.8 (12.0-20.0); CO2, Blood 30 mmol/L (21-32); Calcium, Blood 7.6 mg/dL (8.5-10.1); Chloride, Blood 95 mmol/L (98-108); Creatinine, Blood 3.97 mg/dL (0.60-1.20); Glomerular Filtration Rate 16 (60-); Glucose, Blood 98 mg/dL (70-99); Magnesium, Blood 2.3 mg/dL (1.6-2.4); Phosphorus, Blood 4.4 mg/dL (2.5-4.9); Potassium, Blood 3.7 mmol/L (3.5-5.5); Sodium, Blood 135 mmol/L (136-145)
[2022-10-26 08:01] VITALS: BP 153/94
[2022-10-26 15:12] LABS: BASOPHILS ABSOLUTE AUTO 0.07 K/mm3 (0.00-0.23); BASOPHILS PERCENT AUTO 1 % (0-2); EOSINOPHILS ABSOLUTE AUTO 0.17 K/mm3 (0.00-0.68); EOSINOPHILS PERCENT AUTO 2 % (0-6); Hematocrit 31.9 % (37.0-53.0); Hemoglobin 9.8 g/dL (13.5-17.5); IMMATURE GRAN ABSOLUTE AUTO 0.04 K/mm3 (0.00-0.10); IMMATURE GRAN PERCENT AUTO 0 % (0-1); LYMPHOCYTES ABSOLUTE AUTO 1.04 K/mm3 (0.84-5.20); LYMPHOCYTES PERCENT AUTO 9 % (21-46); MONOCYTES ABSOLUTE AUTO 0.89 K/mm3 (0.16-1.47); MONOCYTES PERCENT AUTO 8 % (4-13); Mean Corpuscular HGB 28.8 pg (26.0-34.0); Mean Corpuscular HGB Conc 30.7 g/dL (31.5-36.5); Mean Corpuscular Volume 94 fL (80-100); Mean Platelet Volume 9.6 fL (9.1-12.4); NEUTROPHILS ABSOLUTE AUTO 8.86 K/mm3 (1.96-9.15); NEUTROPHILS PERCENT AUTO 80 % (41-73); Platelet Count 250 K/mm3 (150-400); RDW Coefficient Variation 15.9 % (11.7-14.2); RDW Standard Deviation 54.2 fL (35.1-46.3); White Blood Cell Count 11.07 K/mm3 (4.00-11.30)
[2022-10-26 15:14] VITALS: BP 152/82
--- NOTE | 2022-10-26 18:44 | NUR ---
DAY SHIFT SUMMARY PT A&OX4, ANSWERS QUESTIONS APPROPRIATELY. VITAL SIGNS STABLE. CALCIUM CONTINUES TO RUN LOW. PT WORKED WITH PHYSICAL THERAPY TODAY AND AMBULATED TO COMMODE. PT OOB AFTER LUNCH FOR THE REST OF THE AFTERNOON AND EARLY EVENING . THE PLAN IS TO EVENTUALLY TRANSFER PT TO A SNF. WILL CONTINUE PLAN OF CARE.
[2022-10-26 19:21] VITALS: BP 153/90
[2022-10-27] VITALS (15 sets, daily range): BP systolic 143–191; BP diastolic 79–837
[2022-10-27 05:05] LABS: BASOPHILS ABSOLUTE AUTO 0.06 K/mm3 (0.00-0.23); BASOPHILS PERCENT AUTO 1 % (0-2); EOSINOPHILS ABSOLUTE AUTO 0.28 K/mm3 (0.00-0.68); EOSINOPHILS PERCENT AUTO 2 % (0-6); Hematocrit 34.8 % (37.0-53.0); Hemoglobin 10.8 g/dL (13.5-17.5); IMMATURE GRAN ABSOLUTE AUTO 0.04 K/mm3 (0.00-0.10); IMMATURE GRAN PERCENT AUTO 0 % (0-1); LYMPHOCYTES PERCENT AUTO 10 % (21-46); MONOCYTES ABSOLUTE AUTO 0.99 K/mm3 (0.16-1.47); MONOCYTES PERCENT AUTO 8 % (4-13); Mean Corpuscular HGB 28.6 pg (26.0-34.0); Mean Corpuscular Volume 92 fL (80-100); Mean Platelet Volume 9.6 fL (9.1-12.4); NEUTROPHILS ABSOLUTE AUTO 10.08 K/mm3 (1.96-9.15); NEUTROPHILS PERCENT AUTO 80 % (41-73); Platelet Count 279 K/mm3 (150-400); RDW Coefficient Variation 15.6 % (11.7-14.2); RDW Standard Deviation 52.4 fL (35.1-46.3); Red Blood Cell Count 3.77 M/mm3 (4.30-5.90); White Blood Cell Count 12.65 K/mm3 (4.00-11.30)
[2022-10-27 05:41] LABS: Albumin, Blood 2.7 g/dL (3.4-5.0); Anion Gap 11 mmol/L (6-16); Blood Urea Nitrogen 56 mg/dL (8-24); Bun/Creatinine Ratio 10.6 (12.0-20.0); CO2, Blood 27 mmol/L (21-32); Calcium, Blood 8.6 mg/dL (8.5-10.1); Chloride, Blood 96 mmol/L (98-108); Creatinine, Blood 5.27 mg/dL (0.60-1.20); Glomerular Filtration Rate 12 (60-); Glucose, Blood 120 mg/dL (70-99); Magnesium, Blood 2.6 mg/dL (1.6-2.4); Phosphorus, Blood 5.8 mg/dL (2.5-4.9); Potassium, Blood 4.3 mmol/L (3.5-5.5); Sodium, Blood 134 mmol/L (136-145)
--- NOTE | 2022-10-27 17:13 | NUR ---
SHIFT SUMMARY: PT HAD DIALYSIS TODAY IN ROOM. COMPLAINT OF BACK PAIN AND WAS MEDICATED PER AUG. MONET BREWER DC'Gale PER PATIENT REQUEST. HE HAS BEEN IN [place] ON TELE. THIS MORNING HE NEEDED HIS O2 INCREASED TO 4L NC TO MAINTAIN SATS >90%. HUMIFIER ADDED TO O2 DUE TO COMPLAINTS OF NOSE SENSITIVITY. PT'S FAMILY AT BEDSIDE AND PATIENT RESTING COMFORTABLY IN CHAIR. CALL LIGHT IN REACH
--- NOTE | 2022-10-27 23:08 | NUR ---
A/OX2; SELF AND PLACE. SOB. RT CONSULTED. REFUSING HFNC. CONTINUOUS BIOX MONITORING INITIATED AT SHIFT START; FREQUENT DESATURATIONS TO LOW 80s ON 6L NC WITH HUMIDIFICATION. FREQUENTLY REPOSITIONED AND COACHED TO BREATH DEEPLY THROUGH NOSE. DENIES BLADDER DISCOMFORT; PVR 114 AT APPROX 2300. DENIES CHEST PAIN AND DENIES DIFFICULTY BREATHING AT THIS TIME. UP IN CHAIR THROUGHOUT SHIFT. NEAR CONSTANT MONITORING BY THIS RN. ENCOURAGED TO MAKE NEEDS KNOWN; USES CALL LIGHT APPROPRIATELY.
--- NOTE | 2022-10-28 02:12 | NUR ---
SPO2 93% ON 10 L VIA HFNC. NON-COMPLIANT WITH TUBING; PATIENT FREQUENTLY REMOVING (TAPED TO FACE AT THIS TIME). DESATS TO HIGH 70s - LOW 80s ON ROOM AIR WHEN HFNC IS REMOVED. THIS RN CALLED MD FOR ABG ORDER; RT ENROUTE AT THIS TIME.
[2022-10-28 02:41] VITALS: BP 164/83
[2022-10-28 04:35] LABS: Hematocrit 29.8 % (37.0-53.0); Hemoglobin 9.4 g/dL (13.5-17.5)
[2022-10-28 04:52] LABS: Albumin, Blood 2.4 g/dL (3.4-5.0); Anion Gap 9 mmol/L (6-16); Blood Urea Nitrogen 50 mg/dL (8-24); CO2, Blood 31 mmol/L (21-32); Calcium, Blood 9.1 mg/dL (8.5-10.1); Chloride, Blood 95 mmol/L (98-108); Creatinine, Blood 4.54 mg/dL (0.60-1.20); Glomerular Filtration Rate 14 (60-); Glucose, Blood 103 mg/dL (70-99); Magnesium, Blood 2.3 mg/dL (1.6-2.4); Phosphorus, Blood 6.2 mg/dL (2.5-4.9); Potassium, Blood 4.1 mmol/L (3.5-5.5); Sodium, Blood 135 mmol/L (136-145)
[2022-10-28 05:36] VITALS: BP 165/77
[2022-10-28 07:39] VITALS: BP 151/88
[2022-10-28 16:37] VITALS: BP 147/118
--- NOTE | 2022-10-28 18:02 | NUR ---
SHIFT SUMMARY PATIENT AOX3 WITH MOMENTS OF CONFUSION. PT. NEEDING FREQUENT REMINDERS TO LEAVE NASAL CANNULA IN PLACE. PT. SPO2 MAINTAINED >94% ON 10LPM WITH HIGH FLOW NASAL CANNULA. PATIENT HAS HAD SOME BLOOD IN HIS SPUTUM, DR. ALDRIDGE NOTIFIED WITH NO NEW CHANGES. CONTINUOUS PULSE OXOMETER IN PLACE. CHAIR IS LOCKED AND CALL LIGHT IS WITHIN REACH. WILL CONTINUE TO MONITOR.
--- NOTE | 2022-10-28 18:16 | NUR ---
PLEASE REFER TO STUDENT NOTE FOR SHIFT SUMMARY.
[2022-10-29] VITALS (16 sets, daily range): BP systolic 120–232; BP diastolic 72–130
--- NOTE | 2022-10-29 04:49 | NUR ---
PT IS A&O4, 10L HIFLO NC, PT IS NON COMPLIANT FREQUENTLY REMOVING NC DESATING INTO THE LOW 80'S, PT WAS ANXIOUS THIS SHIFT COMPLAINING OF NOT BEING ABLE TO REST, PRN ATIVAN GIVEN, PAIN MEDS GIVEN PER MAR FOR BACK PAIN, PT SPENT MOST OF SHIFT IN THE RECLINER, CONTINUE POC
[2022-10-29 04:56] LABS: Hematocrit 30.5 % (37.0-53.0); Hemoglobin 9.6 g/dL (13.5-17.5)
[2022-10-29 05:34] LABS: Magnesium, Blood 2.6 mg/dL (1.6-2.4)
[2022-10-29 06:15] LABS: Albumin, Blood 2.7 g/dL (3.4-5.0); Anion Gap 12 mmol/L (6-16); Blood Urea Nitrogen 70 mg/dL (8-24); Bun/Creatinine Ratio 11.8 (12.0-20.0); CO2, Blood 29 mmol/L (21-32); Calcium, Blood 9.9 mg/dL (8.5-10.1); Chloride, Blood 96 mmol/L (98-108); Creatinine, Blood 5.92 mg/dL (0.60-1.20); Glomerular Filtration Rate 10 (60-); Glucose, Blood 105 mg/dL (70-99); Phosphorus, Blood 8.3 mg/dL (2.5-4.9); Potassium, Blood 4.6 mmol/L (3.5-5.5); Sodium, Blood 137 mmol/L (136-145)
--- NOTE | 2022-10-29 18:09 | NUR ---
SHIFT SUMMARY PT CONFUSED THIS AM AND CONTINUED TO TAKE OFF HIS OXYGEN, THEN QUICKLY WOULD DESAT TO THE 60-70S. CHAIR ALARM PLACED UNDER PATIENT AND VIRTUAL COMPANIAN IN PLACE AND HAVE HELPED KEEP HIS O2 ON TODAY. O2 TITRATED TO 7L AND PT TOLERATING THIS WELL. HD TODAY. PT MORE ORIENTED ADN FOLLOWING DIRECTIONS BETTER THIS AFTERNOON. PT MEDICATED FOR PAIN ONCE THIS SHIFT. PT UP IN CHAIR T/O THIS SHIFT. GOOD APPETITE. NO OTHER ACUTE CHANGES IN ASSESSMENT AT THS TIME. VS REVIEWED. CALL LIGHT IN REACH.
[2022-10-30] VITALS (11 sets, daily range): BP systolic 146–168; BP diastolic 79–94
[2022-10-30 05:04] LABS: BASOPHILS ABSOLUTE AUTO 0.05 K/mm3 (0.00-0.23); BASOPHILS PERCENT AUTO 1 % (0-2); EOSINOPHILS ABSOLUTE AUTO 0.24 K/mm3 (0.00-0.68); EOSINOPHILS PERCENT AUTO 2 % (0-6); Hematocrit 28.3 % (37.0-53.0); Hemoglobin 8.9 g/dL (13.5-17.5); IMMATURE GRAN ABSOLUTE AUTO 0.08 K/mm3 (0.00-0.10); IMMATURE GRAN PERCENT AUTO 1 % (0-1); LYMPHOCYTES ABSOLUTE AUTO 0.72 K/mm3 (0.84-5.20); LYMPHOCYTES PERCENT AUTO 7 % (21-46); MONOCYTES ABSOLUTE AUTO 1.25 K/mm3 (0.16-1.47); MONOCYTES PERCENT AUTO 11 % (4-13); Mean Corpuscular HGB 28.7 pg (26.0-34.0); Mean Corpuscular HGB Conc 31.4 g/dL (31.5-36.5); Mean Corpuscular Volume 91 fL (80-100); Mean Platelet Volume 9.4 fL (9.1-12.4); NEUTROPHILS ABSOLUTE AUTO 8.67 K/mm3 (1.96-9.15); NEUTROPHILS PERCENT AUTO 79 % (41-73); Platelet Count 232 K/mm3 (150-400); RDW Coefficient Variation 15.4 % (11.7-14.2); White Blood Cell Count 11.01 K/mm3 (4.00-11.30)
[2022-10-30 05:31] LABS: Albumin, Blood 2.5 g/dL (3.4-5.0); Anion Gap 10 mmol/L (6-16); Blood Urea Nitrogen 62 mg/dL (8-24); Bun/Creatinine Ratio 11.9 (12.0-20.0); CO2, Blood 30 mmol/L (21-32); Calcium, Blood 9.8 mg/dL (8.5-10.1); Chloride, Blood 98 mmol/L (98-108); Creatinine, Blood 5.19 mg/dL (0.60-1.20); Glomerular Filtration Rate 12 (60-); Glucose, Blood 108 mg/dL (70-99); Magnesium, Blood 2.2 mg/dL (1.6-2.4); Phosphorus, Blood 7.2 mg/dL (2.5-4.9); Potassium, Blood 5.1 mmol/L (3.5-5.5); Sodium, Blood 138 mmol/L (136-145)
--- NOTE | 2022-10-30 07:48 | NUR ---
PT ALERT AND VERBALIZING WELL.
--- NOTE | 2022-10-30 16:37 | NUR ---
SHIFT SUMMARY PT TITRATED DOWN TO 5-6L O2 VIA HIGH FLOW NC. PT FORGETFUL AND TAKES O2 OFF WHEN AMBULATING TO THE BATHROOM. DESATS WITHOUT O2 BUT RECOVERS QUICKLY WHEN IT IS PLACED BACK ON. PT WORKED WITH [employer] AND DID NOT DESAT WHILE WEARING THE O2. PT SHOWERED TODAY. ORIENTED TODAY, BUT FORGETFUL AND IMPULSIVE WHEN NEEDING TO USE THE RESTROOM. NO OTHER ACUTE CHANGES IN ASSESSMENT AT THIS TIME. VS REVIEWED. CALL LIGHT IN REACH. PT WATCHING TV AND UP IN CHAIR MIGUEL.
[2022-10-31] VITALS (12 sets, daily range): BP systolic 155–168; BP diastolic 63–94
[2022-10-31 05:14] LABS: Hematocrit 28.7 % (37.0-53.0)
--- NOTE | 2022-10-31 05:37 | NUR ---
PT IS A&O3-4 SOME FORGETFULNESS OVERNIGHT, 5L HIFLO WITH SATS IN THE LOW 90'S, INDEPENDENT TO THE BR, PRN PAIN MED GIVEN PER MAR FOR BACK PAIN, NO ACUTE EVENTS THIS SHIFT CONTINUE POC
[2022-10-31 05:52] LABS: Magnesium, Blood 2.3 mg/dL (1.6-2.4)
[2022-10-31 06:05] LABS: Albumin, Blood 2.7 g/dL (3.4-5.0); Anion Gap 12 mmol/L (6-16); Blood Urea Nitrogen 90 mg/dL (8-24); Bun/Creatinine Ratio 14.4 (12.0-20.0); CO2, Blood 26 mmol/L (21-32); Calcium, Blood 10.7 mg/dL (8.5-10.1); Chloride, Blood 98 mmol/L (98-108); Creatinine, Blood 6.25 mg/dL (0.60-1.20); Glomerular Filtration Rate 10 (60-); Glucose, Blood 118 mg/dL (70-99); Phosphorus, Blood 8.4 mg/dL (2.5-4.9); Sodium, Blood 136 mmol/L (136-145)
--- NOTE | 2022-10-31 08:05 | NUR ---
PATIENT TO DIALYSIS VIA BED
--- NOTE | 2022-10-31 10:46 | NUR ---
PATIENT RETURNED TO ROOM FROM DIALYSIS. AM MEDS GIVEN AT THIS TIME.
[2022-10-31] MEDS ORDERED: Amiodarone HCl200 MG PO ×2 (11:52)
[2022-10-31] MEDS ORDERED: AMOCLA500 PO (11:52)
[2022-10-31] MEDS ORDERED: ELIQUIS5 M2 PO (11:53)
[2022-10-31] MEDS ORDERED: Carvedilol12.5 MG PO (11:54)
[2022-10-31] MEDS ORDERED: CLOP75 PO (11:54)
[2022-10-31] MEDS ORDERED: CALCITRIOL0.5 MC1 PO (11:54)
[2022-10-31] MEDS ORDERED: Norco 5-325 Ta1 EACH PO (11:54)
[2022-10-31] MEDS ORDERED: SEVEC800 PO (11:55)
[2022-10-31] MEDS ORDERED: PANT20 PO (11:55)
[2022-10-31] MEDS ORDERED: LISI20 PO (11:55)
[2022-10-31] MEDS ORDERED: Crestor20 MG PO (11:55)
[2022-10-31] MEDS ORDERED: VISBIOME 112.51 EACH PO (11:56)
[2022-10-31] MEDS ORDERED: SPIR25 PO (11:56)
[2022-10-31] MEDS ORDERED: Isosorbide Mono30 MG PO (11:57)
--- NOTE | 2022-10-31 12:40 | NUR ---
DISCHARGE PATIENT CLEARED TO DISCHARGE FACILITY TO [facility]. PATIENT AMBULATING WELL IN ROOM. O2 SATS >92% IN THE 5L O2 NC. DNEIES SOB/DIFFICULTY BREATHING. DENIES PAIN. EATING & DRINKING WELL. HAD BM TODAY. DIALYSIS TODAY. PATIENT TO DISCHARGE BACK TO ORIGINAL DIALYSIS SCHEDULE OF 3 DAYS PER WEEK, PER DR MEAD. REPORT CALLED TO RN AT [facility]. PATIENT WAITING FOR TRANSPORT SCHEDULED FOR 1300.
--- NOTE | 2022-10-31 15:32 | NUR ---
NO ACUTE CHANGES SINCE DISCHARGE NOTE. PATIENT ESCORTED OUT VIA W/C W/ TRANSPORT SERVICE.
== END 2022-10-31 15:30 | DRG 640 ==
LOC: ER 07:11 → MEDS 07:12 → ICUW 10-21 15:30 → MEDS 10-21 15:30 → ICUW 10-22 20:50 → MEDS 10-26 01:02 → ENPENDDIS 10-31 11:05 → MEDS 10-31 15:30
PROVIDERS: Internal Medicine; Internal Medicine Cardiovascular Disease; Internal Medicine Nephrology; Nurse Practitioner Acute Care; Physician Assistant; ADMIT Family Medicine
PROC: 5A1945Z Respiratory Ventilation, 24-96 Consecutive Hours (ICD-10-PCS; 2022-10-22)
PROC: 0BH17EZ Insertion of Endotracheal Airway into Trachea, Via Natural or Artificial Opening (ICD-10-PCS; 2022-10-22)
PROC: 5A2204Z Restoration of Cardiac Rhythm, Single (ICD-10-PCS; 2022-10-22)
PROC: B2111ZZ Fluoroscopy of Multiple Coronary Arteries using Low Osmolar Contrast (ICD-10-PCS; principal; 2022-10-23)
PROC: 4A023N7 Measurement of Cardiac Sampling and Pressure, Left Heart, Percutaneous Approach (ICD-10-PCS; 2022-10-23)
PROC: B240ZZ3 Ultrasonography of Single Coronary Artery, Intravascular (ICD-10-PCS; 2022-10-23)
PROC: 5A1D70Z Performance of Urinary Filtration, Intermittent, Less than 6 Hours Per Day (ICD-10-PCS; 2022-10-23)
PROC: 0T9B70Z Drainage of Bladder with Drainage Device, Via Natural or Artificial Opening (ICD-10-PCS; 2022-10-23)
PROC: 4A033R1 Measurement of Arterial Saturation, Peripheral, Percutaneous Approach (ICD-10-PCS; 2022-10-23)
PROC: 0DH67UZ Insertion of Feeding Device into Stomach, Via Natural or Artificial Opening (ICD-10-PCS; 2022-10-24)
PROC: B24BZZ4 Ultrasonography of Heart with Aorta, Transesophageal (ICD-10-PCS; 2022-10-30)
DX: E83.51 Hypocalcemia (principal); G92.8 Other toxic encephalopathy; J96.01 Acute respiratory failure with hypoxia; N18.6 End stage renal disease; I21.A1 Myocardial infarction type 2; I50.43 Acute on chronic combined systolic (congestive) and diastolic (congestive) heart failure; J18.9 Pneumonia, unspecified organism; R57.0 Cardiogenic shock; I13.2 Hypertensive heart and chronic kidney disease with heart failure and with stage 5 chronic kidney disease, or end stage renal disease; E87.1 Hypo-osmolality and hyponatremia; N17.9 Acute kidney failure, unspecified; N25.81 Secondary hyperparathyroidism of renal origin; N39.0 Urinary tract infection, site not specified; J98.11 Atelectasis; F05 Delirium due to known physiological condition; I25.5 Ischemic cardiomyopathy; D63.1 Anemia in chronic kidney disease; E78.00 Pure hypercholesterolemia, unspecified; K40.90 Unilateral inguinal hernia, without obstruction or gangrene, not specified as recurrent; K76.0 Fatty (change of) liver, not elsewhere classified; F17.210 Nicotine dependence, cigarettes, uncomplicated; F12.90 Cannabis use, unspecified, uncomplicated; I45.10 Unspecified right bundle-branch block; M45.0 Ankylosing spondylitis of multiple sites in spine; I25.10 Atherosclerotic heart disease of native coronary artery without angina pectoris; B95.2 Enterococcus as the cause of diseases classified elsewhere; I48.0 Paroxysmal atrial fibrillation; R97.20 Elevated prostate specific antigen [PSA]; I27.21 Secondary pulmonary arterial hypertension; R94.31 Abnormal electrocardiogram [ECG] [EKG]; E86.9 Volume depletion, unspecified; R33.9 Retention of urine, unspecified; I07.1 Rheumatic tricuspid insufficiency; E88.09 Other disorders of plasma-protein metabolism, not elsewhere classified; E83.41 Hypermagnesemia; E87.5 Hyperkalemia; E83.39 Other disorders of phosphorus metabolism; Z99.2 Dependence on renal dialysis; Z86.73 Personal history of transient ischemic attack (TIA), and cerebral infarction without residual deficits; Z98.890 Other specified postprocedural states; Z79.899 Other long term (current) drug therapy; Z95.5 Presence of coronary angioplasty implant and graft; Z71.6 Tobacco abuse counseling; Z79.01 Long term (current) use of anticoagulants; Z74.09 Other reduced mobility
CPT/HCPCS: 31500; 36415; 36600; 71045; 71046; 71260; 76870; 76937; 80048; 80053; 80069; 81001; 82140; 82330; 82607; 82746; 82803; 82947; 83605; 83735; 83880; 84100; 84145; 84484; 85014; 85018; 85025; 87040; 87077; 87086; 87186; 93005; 93010; 93306; 93312; 93325; 93458; 94002; 94003; 94760; 94762; 96365; 96372; 96374; 97110; 97162; 97530; 99285-25; A9270; C1769; C1887; C1894; C8929; C9113; G0103; G0378; J0282; J0290; J0612; J0696; J0881; J1170; J1630; J1644; J1940; J2060; J2250; J2704; J3010; J3411; J3475; J7030; J7040; J7050; J7060; Q9957; Q9967

== ENCOUNTER 2022-11-06 15:19 | Inpatient (IN) | payer OTHER ==
[2022-11-06] VITALS (14 sets, daily range): BP systolic 119–147; BP diastolic 68–82
[~2022-11-06] VITALS: Ht 172.7 cm; Wt 79.3 kg
[~2022-11-06 15:19] MED LIST changes: +AMOCLA500 PO; +Amiodarone HCl200 MG PO; +CALCIUM CARBON200 M1 PO; +CLOP75 PO; +Crestor20 MG PO; +ELIQUIS5 M2 PO; +Isosorbide Mono30 MG PO; +LISI20 PO; +MEGE40T PO; +Norco 5-325 Ta1 EACH PO; +PANT20 PO; +SEVEC800 PO; +SPIR25 PO; +VISBIOME 112.51 EACH PO
[2022-11-06 16:03] LABS: BASOPHILS ABSOLUTE AUTO 0.04 K/mm3 (0.00-0.23); BASOPHILS PERCENT AUTO 0 % (0-2); EOSINOPHILS ABSOLUTE AUTO 0.15 K/mm3 (0.00-0.68); EOSINOPHILS PERCENT AUTO 1 % (0-6); Hematocrit 22.1 % (37.0-53.0); Hemoglobin 7.1 g/dL (13.5-17.5); IMMATURE GRAN ABSOLUTE AUTO 0.07 K/mm3 (0.00-0.10); IMMATURE GRAN PERCENT AUTO 1 % (0-1); LYMPHOCYTES ABSOLUTE AUTO 0.73 K/mm3 (0.84-5.20); LYMPHOCYTES PERCENT AUTO 5 % (21-46); MONOCYTES ABSOLUTE AUTO 1.21 K/mm3 (0.16-1.47); MONOCYTES PERCENT AUTO 8 % (4-13); Mean Corpuscular HGB 28.5 pg (26.0-34.0); Mean Corpuscular HGB Conc 32.1 g/dL (31.5-36.5); Mean Corpuscular Volume 89 fL (80-100); Mean Platelet Volume 9.8 fL (9.1-12.4); NEUTROPHILS ABSOLUTE AUTO 12.85 K/mm3 (1.96-9.15); NEUTROPHILS PERCENT AUTO 85 % (41-73); Platelet Count 239 K/mm3 (150-400); RDW Coefficient Variation 15.6 % (11.7-14.2); RDW Standard Deviation 50.4 fL (35.1-46.3); Red Blood Cell Count 2.49 M/mm3 (4.30-5.90); White Blood Cell Count 15.05 K/mm3 (4.00-11.30)
[2022-11-06 16:10] LABS: Calcium, Ionized (POC) 1.01 mmol/L (1.10-1.46); Chloride (POC) 97 mmol/L (98-108); Creatinine (POC) 8.3 mg/dL (0.8-1.3); Glucose (ISTAT POC) 107 mg/dL (70-99); Hemoglobin (POC) 6.5 g/dL (13.5-17.5); Sodium (POC) 135 mmol/L (135-148); Total CO2 (POC) 27 mmol/L (21-32)
[2022-11-06 16:22] LABS: Albumin, Blood 2.3 g/dL (3.4-5.0); Albumin/Globulin Ratio 0.6 (0.8-1.8); Bilirubin, Total 0.4 mg/dL (0.1-1.0); Bun/Creatinine Ratio 15.1 (12.0-20.0); Calcium, Blood 8.5 mg/dL (8.5-10.1); Creatinine, Blood 7.42 mg/dL (0.60-1.20); Globulin, Blood 4.1 g/dL (2.2-4.0); Magnesium, Blood 2.7 mg/dL (1.6-2.4); Phosphorus, Blood 7.3 mg/dL (2.5-4.9); Total Protein, Blood 6.4 g/dL (6.4-8.2)
[2022-11-06 17:42] LABS: Base Excess Venous 2.9 mmol/L; Bicarbonate Venous 26.9 mmol/L (24.0-30.0); PCO2 Venous 40.9 mmHg (38-42); pH Blood Venous 7.43 (7.34-7.37)
[2022-11-06 19:52] LABS: Source, Urine Clean Catch
[2022-11-06 20:10] LABS: Bilirubin, Urine Neg (Neg); Blood, Urine Neg (Neg); Glucose Qualitative, Urine Neg (Neg); Ketones, Urine Neg (Neg); Leukocyte Esterase, Urine Neg (Neg); Nitrite, Urine Neg (Neg); Protein, Urine 3+ (Neg); Urobilinogen, Urine NORM (Normal)
[2022-11-06 20:30] LABS: Appearance, Urine Clear (Clear); Color, Urine Yellow (P-Yellow)
[2022-11-06 20:31] LABS: Bacteria Rare /hpf; Red Blood Cells, Urine 0-2 /hpf (0-2); Squamous Epithelial Cells Few /hpf (Few)
[2022-11-07] VITALS (25 sets, daily range): BP systolic 121–171; BP diastolic 65–102
--- NOTE | 2022-11-07 00:49 | NUR ---
PT RECIEVED 1 UNIT PRBC DURING HIS DIALYSIS TREATMENT TONIGHT. PT TOLERATED IT WELL AND STATES HE IS FELLING BETTER. THE PT IS BEING SNIPPY W/ STAFF AND IS WANTING TO LEAVE THE HOSPITAL DESPITE INFORMING HIM THAT HE IS IN CRITICAL CONDITION STILL. BED ALARM ON. SEE NOTES FOR MORE INFORMATION.
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
[2022-11-07 04:16] LABS: Hematocrit 24.5 % (37.0-53.0); Mean Corpuscular HGB 28.9 pg (26.0-34.0); Mean Corpuscular HGB Conc 32.7 g/dL (31.5-36.5); Mean Corpuscular Volume 88 fL (80-100); Mean Platelet Volume 9.5 fL (9.1-12.4); Platelet Count 222 K/mm3 (150-400); RDW Coefficient Variation 15.3 % (11.7-14.2); RDW Standard Deviation 49.1 fL (35.1-46.3); Red Blood Cell Count 2.77 M/mm3 (4.30-5.90); White Blood Cell Count 13.37 K/mm3 (4.00-11.30)
[2022-11-07 04:51] LABS: Albumin, Blood 2.3 g/dL (3.4-5.0); Albumin/Globulin Ratio 0.6 (0.8-1.8); Bilirubin, Total 0.6 mg/dL (0.1-1.0); Bun/Creatinine Ratio 12.4 (12.0-20.0); Calcium, Blood 8.2 mg/dL (8.5-10.1); Creatinine, Blood 5.64 mg/dL (0.60-1.20); Globulin, Blood 3.9 g/dL (2.2-4.0); Magnesium, Blood 2.4 mg/dL (1.6-2.4); Phosphorus, Blood 6.2 mg/dL (2.5-4.9); Potassium, Blood 4.7 mmol/L (3.5-5.5); Total Protein, Blood 6.2 g/dL (6.4-8.2)
--- NOTE | 2022-11-07 05:42 | NUR ---
RESTRAINTS INITIATED, ATIVAN GIVEN, ROMAZICON GIVEN PT KEPT PULLING OFF HIS NC, MONITORS, AND GETTING OOB W/O ASSISTANCE. WE PUT A CLINICAL 1:1 SITTER IN THE ROOM AND BEHAVIORS WERE UNCHANGED. WE TRIED DISTRACTIONS SUCH TV, MUSIC, AND REDUCING STIMULI AND ALL EFFORTS FAILED. WE THEN TRIED TO SEE IF THE PT COULD GET COMFORTABLE AND REST IN THE RECLINER AND BEHAVIORS WERE STILL UNCHANGED. RIGHT BEFORE SOFT RESTRAINTS ON ALL EXTREMITIES WERE INNITIATED, THE PT THREW HIS TELE BOX OFF TOWARDS OUR SITTER, BEGAN TO GET COMBATIVE WHEN STAFF WAS PUTTING HIS MONITORS AND OXYGEN BACK ON. BREE ESTRADA, BREE DEMPSEY, RADHA DOWD FROM SECURITY, AND MYSELF GOT THE PT UP FROM THE CHAIR. WHEN IN BED, THE PLACED THE PT IN SOFT RESTRAINTS ON ALL EXTREMITIES WHILE DR. CELIS CALLED FOR ORDERS. DURING THE INITITATION PT WAS CALM, BUT THE PT BECAME RESTLESS, PULLING AT CUFFS, AND WAS STILL PULLING TELE LEADS OFF. WHEN RESTRAINT ORDER WAS OBTAINED AT 0500, DR. CELIS ORDERED ATIVAN PRN. ADMINISTERED 2MG OF ATIVAN AT 0509. THE PT WAS ON 9L HFNC. AFTER ABOUT TWENTY MINUTES HE STARTED TO DESATURATE AND HE WAS TURNED UP TO 15L NC. HE WAS STILL SATURATING IN THE 80'S SO WE PUT A NON RE-BREATHER ON THE PT OVER THE HFNC. THE PT'S GAG REFLEX WAS TESTED AND IT CAME BACK NEGATIVE. I CALLED DR. CELIS AND GOT AN ORDER FOR ROMAZICON. AT 0532 QUILL WORKER ADMINISTERED 0.2 OF ROMAZICON. AFTER ABOUT TEN MINUTES THE PT BEGAN TO WAKE UP, YELL OUT, AND IS PULLING AT RESTRAINTS. I HAVE STAYED IN THE ROOM W/ A 1:1 SITTER TO MONITOR THE PT. HE KEEPS WAKING UP, THEN FALLING BACK ASLEEP. HE STILL WAKES TO PHYSICAL AND VERBAL STIMULI. HE HAS HAD MULTIPLE CONVERSATIONS W/ ME SINCE GIVEN THE ROMAZICON. PT IS STILL ON THE NONREBREATHER AND 15L HFNC FOR EXTRA SUPPORT. AT 0617 HIS SP02 IS 90%-93% AND HE IS TRYING TO PULL OFF THE NONREBREATHER AND TELE LEADS. SEE NOTES FOR ANY CHANGES.
--- NOTE | 2022-11-07 06:40 | NUR ---
Shift Summary Pt is A&OX4, and has only tried to climb out of bed once w/o using her call light. The pt is able to make her needs known but can be forgetful. She is very redirectable. When she is asleep she accidentally takes off her oxygen and will desaturate. She is requiring 11-15L HFNC to maintain sp02 >90%. The pt gets sob w/ activity and needs maxed out on the HFNC when getting up to the BSC. She has extensive excoriation on her buttocks and in her perineal region and is a Q2 turn. The pt tolerates side lying very well. She has a márquez draining to gravity due to the wounds, and has a brief on because she has been having occasional incontinence. Per EMAR we are putting a mix of silver and A&D ointment on her wounds. On telemetry the pt has been SR/St80 s-100 s and she denies any angina or chest pressure. For transferring the pt is a 1p w/ FWW to the BSC or chair. Pt pleasant and cooperative. Her bed alarm is on, the bed is in a low position, and her call light is in reach. See notes for any updates.
--- NOTE | 2022-11-07 06:50 | NUR ---
Shift Summary Pt is a new admit this shift for ARF w/ Hypoxia. He was sent from dialysis due to increased weakness, confusion, and increased oxygen demand. The pt usually does not wear oxygen, but he was requiring 6 L NC to maintain SP02 >94%. When he was eating a snack he desaturated to the upper 70 s and had to be placed on 9 L HFNC. Shortly after being transferred to PCU 19, the dialysis nurse came and started the stat peritoneal dialysis. During dialysis the pt received one unit of PRBC due to anemia. Before treatment the pt could barely keep his eyes open, responded to questions, and was too weak to move in the bed. Post treatment, the pt was yelling out, stating he wanted to go home, was able to eat snacks, and could stand at the side of the bed so we could re-zero it. On tele the pt is Sinus Aidan 50 s-70 s. Due to behavior he is in all four extremity soft restraints. See previous note for details on restraints, ativan administration, and romazicon administration, and current status.
--- NOTE | 2022-11-07 11:18 | NUR ---
UPDATE VERIFIED WITH DR. MEAD PT TAKES ENTRESTO A HOME MED, AND THAT PT HADNT TAKEN LISINOPRIL IN OVER 36 HRS. PHARMACY NOTIFIED.
--- NOTE | 2022-11-07 11:21 | NUR ---
PT REPEATEDLY YELLED "FUCKING BITCH" "FUCKING CUNT" "YOU WILL END UP BECAUSE OF THIS" "FUCKING ASSHOLE" AND MANY MORE VERBAL THREATS.
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
--- NOTE | 2022-11-07 12:30 | NUR ---
Met with pt this morning while he was finishing dialysis. According to Edwin shoe fitter the pt was yelling and telling her to "stop it". She did in fact stop early, as it became distressing for her to continue when he began asking her to stop. Unfortunately, the pt appears to be more confused than his usual baseline. He is currently in restraints as he is unable to follow commands. Attempted to reach his brother Jack, left a voicemail asking him to return my call.
--- NOTE | 2022-11-07 13:16 | NUR ---
UPDATE CALLED [facility] FOR UPDATED MED LIST. LEFT MESSAGE WITH DIRECTOR.
[2022-11-07 15:05] LABS: Base Excess Venous 10.8 mmol/L; Bicarbonate Venous 33.5 mmol/L (24.0-30.0); PCO2 Venous 42.5 mmHg (38-42); pH Blood Venous 7.51 (7.34-7.37)
--- NOTE | 2022-11-07 17:20 | NUR ---
UPDATE DR. MEAD NOTIFIED OF PT'S BLADDER SCAN AMOUNT OF OVER 700. ORDERS TO PLACE HEALY AND LEAVE IN ALL NIGHT. ORDERS FOR FLOMAX 0.4 BID AND PSA SCREEN IN AM. WILL CONT TO MONITOR.
--- NOTE | 2022-11-07 19:09 | NUR ---
PCT NOTE TOOK OVER FOR PCT AT 1835, PT AGITATING, YELLING AND THREATENING.
--- NOTE | 2022-11-07 19:28 | NUR ---
UPDATE BROTHER ALLISON CALLED ASKING FOR UPDATE. THIS RN ASKED PATIENT IF OK TO UPDATE. PT STATED UPDATE WAS FINE.
--- NOTE | 2022-11-07 19:31 | NUR ---
SHIFT SUMMARY PT ALERT AND ORIENTED TO SELF. REMAINS IN 4 PT RESTRAINTS FOR PT SAFETY. PT CONT TO PULL AT LINES AND ATTEMPT TO GET OUT OF BED. PT CONT TO YELL AT STAFF T/O SHIFT. REFUSING CARE AND SPITTING OUT MEDICATIONS AT TIMES. PT DESATS WHEN YELLING INTO LOW 80'S. ON 4-8 L VIA NC T/O SHIFT TO MAINTAIN 02 ABOVE 92%. MD NOTIFIED OF PT'S INCREASE IN CONFUSION T/O SHIFT. VBG ORDERED. PT RETAINING URINE, UNABLE TO VOID. SEE EHR FOR BLADDER SCAN AMOUNT. ORDERS FOR HEALY TO BE PLACED PER DR. MEAD D/T ESRD AND NEED FOR ACCURATE I &0. ORDERS TO REMOVE HEALY TOMORROW AM. CALL LIGHT WITHIN REACH. 1:1 SITTER PRESENT. REPORT GIVEN TO VALERIE HILTON.
--- NOTE | 2022-11-07 20:49 | NUR ---
ASSUMPTION OF CARE: PATIENT IS ORIENTED TO SELF AND FAMILY. NO IDEA OF HIS SITUATION. YELLING OUT, BEING IMPULSIVE, TRYING TO PULL LINES AND CORDS, AT RISK FOR SELF HARM AND STILL BEING AGGRESSIVE WITH STAFF. ENDORSES VISUAL HALLUCINATION. REFUSED TELE MONITORING, REFUSING MEDICATIONS. PATIENT ON NC 5-7L HOB >30'. FLUID OVERLOADED ABDOMEN IS DISTENDED. AND HERNIATION INTO THE SCROTUM IS VERY LARGE, RUE AT THE LEVEL OF THE FORARM IS SWOLLEN, PROVIDER KNOWS. PATIENT HAS 1:1 SITTER, NON COMPLIANT, WILL CONTINUE TO MONITOR UNTIL SHIFT CHANGE DENIES CHEST PAIN OR PRESSURE.
[2022-11-08] VITALS (16 sets, daily range): BP systolic 123–170; BP diastolic 65–114
[2022-11-08 04:35] LABS: Hematocrit 28.5 % (37.0-53.0); Mean Corpuscular HGB 28.4 pg (26.0-34.0); Mean Corpuscular HGB Conc 31.6 g/dL (31.5-36.5); Mean Corpuscular Volume 90 fL (80-100); Mean Platelet Volume 9.4 fL (9.1-12.4); Platelet Count 280 K/mm3 (150-400); RDW Coefficient Variation 15.2 % (11.7-14.2); RDW Standard Deviation 50.2 fL (35.1-46.3); Red Blood Cell Count 3.17 M/mm3 (4.30-5.90); White Blood Cell Count 12.91 K/mm3 (4.00-11.30)
[2022-11-08 05:16] LABS: Magnesium, Blood 2.4 mg/dL (1.6-2.4)
[2022-11-08 05:17] LABS: Albumin, Blood 2.4 g/dL (3.4-5.0); Anion Gap 8 mmol/L (6-16); Blood Urea Nitrogen 51 mg/dL (8-24); Bun/Creatinine Ratio 10.1 (12.0-20.0); CO2, Blood 30 mmol/L (21-32); Calcium, Blood 8.2 mg/dL (8.5-10.1); Chloride, Blood 100 mmol/L (98-108); Creatinine, Blood 5.04 mg/dL (0.60-1.20); Glomerular Filtration Rate 12 (60-); Glucose, Blood 82 mg/dL (70-99); Phosphorus, Blood 5.6 mg/dL (2.5-4.9); Potassium, Blood 4.4 mmol/L (3.5-5.5); Sodium, Blood 138 mmol/L (136-145)
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
--- NOTE | 2022-11-08 08:49 | NUR ---
PT DOES NOT TOLERATE BEING LAID DOWN FLAT WELL, SATS DROPPED TO LOW 80'S DURING ADL'S NEEDED TO BE INCREASED TO 8L TO RECOVER. BACK DOWN TO 6L NASAL CANULA AT THIS TIME. HEAD OF BED IN SEMI FOWLERS. SATS 94%. PT REMAINS CONFUSED AND AGITATED WITH CARE. BECOMES ANGRY WITH STAFF IN ROOM. [address] HEALY PATENT AND DRAINING . SITTER IN PLACE TO WATCH CORDS. PT STARTS TO GRAB AT ALL LINES SOON HE IS DISCONNECTED FROM RESTRAINTS FOR R.O.M.
--- NOTE | 2022-11-08 10:28 | NUR ---
PT ABLE TO ANSWER ALL QUESTIONS APPROPRIATLY [id number]. PT AGREEABLE TO NOT PULLING AT LINES AND CORDS. RESTRAINTS DC'S AT THIS TIME. WILL CONTINUE TO ASSESS FOR CONFUSION AND AGITATION.
--- NOTE | 2022-11-08 10:45 | NUR ---
THIS RN ASSUMED CARE AT THIS TIME
--- NOTE | 2022-11-08 11:00 | NUR ---
Spiritual care visit attempted. PAtietn is resting when I enter the patient's rm. Patient greets me intially but then falls right back to sleep. I will return to visit again.
--- NOTE | 2022-11-08 14:53 | NUR ---
Pt appears unable to stay awake today; he awakens easily, but will only provide 1 or 2 word answers to questions before dozing off again. Updated pt's brother Jack on the current situation. Jack did agree today that he would be willing to make decisions for Pat if he remains unable as he is currently. Dr. Carrington gave v/o for psych eval today, and I was informed yesterday by pt's brother Jack that pt was diagnosed with schizophrenia many years ago, but he never sought any treatment for it. Dr. 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 Placed psych consult and spoke directly with FRANK Lopez. She will follow up with pt. I did mention pt's code status today while on the phone with his brother Jack, and he indicated he is not comfortable making any changes without discussing with remaining siblings. Pt's BNP continues to rise despite dialysis yesterday and scheduled again today. No changes made to care plan, but will continue to monitor and change care plan as pt/family/physician agree.
--- NOTE | 2022-11-08 16:59 | NUR ---
UPDATE PT MENTATION CLEARED ONCE BACK FROM DIALYSIS. PT ALERT AND ORIENTED X 3. VERY PLEASENT. WITHIN ONE HOUR PT BECAME CONFUSED AND AGITATION. BEGAN ATTEMPTING TO GET OUT OF BED. YELLING AT NURSING STAFF. NOT ABLE TO DIRECT PT. PT NEEDED TO HAVE BM. REFUSING BED QUINTANILLA. SECURITY TO ROOM AND 4 OTHER NURSING STAFF IN ROOM FOR PT TO BE UP FOR BM. PT DID NOT HIT AT STAFF DURING THIS TIME. STOOL BLACK IN COLOR. MD NOTIFIED. ORDERS FOR H&H NOW AND STOOL OCCULT. WILL CONT TO MONITOR. 1:1 SITTER PRESENT.
[2022-11-08 17:49] LABS: Hematocrit 28.9 % (37.0-53.0); Hemoglobin 9.4 g/dL (13.5-17.5)
--- NOTE | 2022-11-08 18:16 | NUR ---
SHIFT SUMMARY SEE RN NOTES FOR UPDATES T/O SHIFT. PT CURRENLTY WITHOUT RESTRAINTS. AGITATED BUT DIRECTABLE AND NOT HITTING STAFF. TURNED Q 2 HRS. BLADDER SCAN DONE, 312 ML. PT UNABLE TO VOID. WILL INFORM ONCOMING RN. NOT WITHIN PARAMETERS TO STRAIGHT CATH. NO CP OR PRESSURE REPORTED. HR STABLE. BP STABLE. OXYGEN SATURATION MAINTAINED ABOVE 92% ON 4-5 L VIA NC. PT MEDICATED ONCE WIT ZYPREXA 5 MG FOR AGGITATION, SEE EMAR. CALL LIGHT WITHIN REACH. 1:1 SITTER PRESENT AND WITH PT IN ROOM. WILL CONT TO MONITOR UNTIL REPORT GIVEN TO NIGHTSHIFT RN.
--- NOTE | 2022-11-08 19:25 | NUR ---
UPDATE PT CONT TO GET OOB. STAFF ASSISTED PT UP TO CHAIR. PT CONT TO ATTEMPT OUT OF CHAIR AND PULL AT LINES. RESTRAINTS PUT BACK ON PT FOR SAFETY. ORDER PROVIDED FROM . REPORT GIVEN TO NIGHTSHIFT RN.
--- NOTE | 2022-11-08 22:09 | NUR ---
ASSUMED CARE @ 1915 PATIET LYING IN BED YELLING, A&O X 1, AND PULLING ON RESTRAINTS WHILE ATTEMPTING TO GET OUT OF BED. TALKS TO PEOPLE WHO ARE NOT IN THE ROOM AND SEEING CATS IN HIS ROOM. WHEN ATTEMPTING TO REDIRECT, PATIENT BECOMES INCREASINGLY AGITATED. BRIEF PERIODS OF ORIENTATION OCCUR WHERE HE IS A&O TO SLEF AND FOLLOWING COMMANDS, BUT THESE ARE NOT CONSISTENT. ASSISTED PATIENT TO BEDPAN AND USE OF URINAL WITH HOSPICE HOME HEALTH AIDE AND FELLOW NURSE. REPORT COMPLETED WITH VALERIE STINSON.
[2022-11-08 23:09] LABS: HBSAG SCREEN Negative (Negative)
[2022-11-09 00:02] VITALS: BP 125/96
[2022-11-09 04:02] VITALS: BP 156/85
--- NOTE | 2022-11-09 05:12 | NUR ---
SHIFT SUMMARY PATIENT WAS AGITATED AND YELLING PROFANITIES AT STAFF THROUGHOUT SHIFT WITH MINIMAL SLEEP. PATIENT WAS ABLE TO STAND AT BEDSIDE TO USE URINAL AND AMBULATE TO THE RESTROOM FOR BM WITH SBA. PATIENT REFUSED TO RETURN TO BED FOLLOWING TOILETING REQUIRING MULTIPLE STAFF TO ASSIST PATIENT BACK TO BED. PATIENT PULLED OFF SPO2 PROBE AND NASAL CANNULA THROUGHOUT NIGHT DESPITE FREQUENT REDIRECTING AND EDUCATION. PATIENT A&O X 1 WITH INTERMITTENT PERIODS WHERE HE KNOWS THE YEAR. HE DOES NOT KNOW WHERE HE IS OR WHY HE IS HERE. PIV REMAINED SALINE LOCKED. PATIENT CONSUMED 360ML LIQUID DURING SHIFT. NO OTHER CHANGES.
[2022-11-09 06:24] LABS: Hematocrit 28.1 % (37.0-53.0); Hemoglobin 8.8 g/dL (13.5-17.5)
[2022-11-09 06:41] LABS: Albumin, Blood 2.3 g/dL (3.4-5.0); Anion Gap 8 mmol/L (6-16); Blood Urea Nitrogen 63 mg/dL (8-24); CO2, Blood 30 mmol/L (21-32); Calcium, Blood 8.3 mg/dL (8.5-10.1); Chloride, Blood 102 mmol/L (98-108); Creatinine, Blood 5.24 mg/dL (0.60-1.20); Glomerular Filtration Rate 12 (60-); Glucose, Blood 103 mg/dL (70-99); Magnesium, Blood 2.5 mg/dL (1.6-2.4); Phosphorus, Blood 6.2 mg/dL (2.5-4.9); Potassium, Blood 4.5 mmol/L (3.5-5.5); Sodium, Blood 140 mmol/L (136-145)
[2022-11-09 07:50] VITALS: BP 151/123
--- NOTE | 2022-11-09 07:59 | NUR ---
BP PATIENT REFUSING TO HOLD STILL WHILE ATTEMPTING TO TAKE BP, STATED HE WAS GOING TO "BREAK ONE OF THE MACHINES AND NOT PAY FOR IT"
[2022-11-09 08:58] LABS: Stool Occult Blood Guaiac 1 Pos (Neg)
--- NOTE | 2022-11-09 10:59 | NUR ---
PSYCH VISIT MARCELLUS FROM PSYCH STOPPED BY TO VISIT WITH THE PATIENT. HARD COPY OF REPORT TO BE PLACED IN PHYSICAL CHART LATER TODAY. UPDATE ON PT CONDITION PROVIDED TO HER BY THIS RN.
--- NOTE | 2022-11-09 11:36 | NUR ---
PCU TRANSFER RECEIVED REPORT FROM GARMENT LINER. RECEIVED PT TO ROOM 347 VIA BED TRANSFER. PT IS IN 4 POINT RESTRAINTS. IS RESTING WITH EYES CLOSED.
[2022-11-09 16:04] VITALS: BP 135/81
--- NOTE | 2022-11-09 18:27 | NUR ---
SHIFT SUMMARY IS IN WRIST AND ANKLE RESTRAINTS FOR HITTING STAFF. MAKES THREATENING STATEMENTS TOWARDS STAFF. ATTEMPTS TO MANIPULATE STAFF. NO ACUTE CHANGES THIS SHIFT. VSS. BECOMES EASILY ANGERED AND YELLS OBSCENITIES AT STAFF. IS NOT EASILY REDIRECTED OR CALMED. HAS 1:1 SITTER.
[2022-11-09 19:13] VITALS: BP 146/74
[2022-11-10] VITALS (14 sets, daily range): BP systolic 136–162; BP diastolic 73–105
--- NOTE | 2022-11-10 03:59 | NUR ---
SHIFT MOSTLY UNREMARKABLE. PT WAS COOPERATIVE WITH 2100 MED PASS AND ASSESSMENT. SINCE THAT TIME, HAS BEEN AWAKE THROUGHOUT SHIFT. 1:[address] SINCE MEDICATION PASS, PT HAS BEEN AGITATED, ATTEMPTING OOB, CONFRONTATIONAL WITH STAFF, AND VERY UNPLEASANT. 300ML OF URINE OUTPUT THIS SHIFT THUS FAR. PT REMAINS CONFUSED BUT IS ABLE TO MAKE NEEDS KNOWN. FREQUENTLY REQUESTS URINAL BUT IS RARELY ABLE TO PRODUCE ANY URINE OUTPUT. RENEWED ORDER FOR RESTRAINTS FROM HOSPITALIST DR. WEBB. Q2 HOUR RESTRAINT MANAGEMENT INTERVENTION COMPLETED PER ORDERS. PT STILL IN NEED OF RESTRAINTS DUE TO UNSAFE AND DANGEROUS BEHAVIORS. PER SHIFT REPORT, STAFF WAS NOTIFIED FROM FAMILY THAT PATIENT IS SCHIZOPHRENIC THOUGH THIS IS NOT NOTED WITHIN DR NOTES. OTHER THAN THIS, SHIFT HAS BEEN UNREMARKABLE. PT REFUSES CONTINUOUS PULSE OX OR ANY OXYGEN SUPPLEMENTATION. HAS NOT PULLED OUT IV THIS SHIFT OF NOW. BED LOCKED IN LOWEST POSITION. CALL LIGHT LEFT WITHIN REACH.
[2022-11-10 05:50] LABS: Hematocrit 28.5 % (37.0-53.0); Mean Corpuscular HGB 28.3 pg (26.0-34.0); Mean Corpuscular HGB Conc 31.6 g/dL (31.5-36.5); Mean Corpuscular Volume 90 fL (80-100); Mean Platelet Volume 8.9 fL (9.1-12.4); Platelet Count 270 K/mm3 (150-400); RDW Standard Deviation 49.1 fL (35.1-46.3); Red Blood Cell Count 3.18 M/mm3 (4.30-5.90); White Blood Cell Count 13.33 K/mm3 (4.00-11.30)
[2022-11-10 06:23] LABS: Albumin, Blood 2.4 g/dL (3.4-5.0); Anion Gap 9 mmol/L (6-16); Blood Urea Nitrogen 88 mg/dL (8-24); Bun/Creatinine Ratio 12.6 (12.0-20.0); CO2, Blood 28 mmol/L (21-32); Calcium, Blood 9.3 mg/dL (8.5-10.1); Chloride, Blood 104 mmol/L (98-108); Creatinine, Blood 6.96 mg/dL (0.60-1.20); Glomerular Filtration Rate 8 (60-); Glucose, Blood 111 mg/dL (70-99); Magnesium, Blood 2.6 mg/dL (1.6-2.4); Phosphorus, Blood 7.5 mg/dL (2.5-4.9); Potassium, Blood 4.4 mmol/L (3.5-5.5); Sodium, Blood 141 mmol/L (136-145)
--- NOTE | 2022-11-10 09:11 | NUR ---
pt laying in bed with restraints in place, awake, calm, removed one restraint to eat, did ok, very flat affect, took po meds without diff, lungs are course dim t/o, resp even and unlabored, occ nonprod cough, hrr, has scrotal edema, on r/a as he refuses 02, piv to lfa, site is clear and patent, perma cath to rcw, site is clear, uses urinal to void, skin c/w/d, willie roa, call light in reach, sitter at bedside, call light in reach, plan for him to have dialysis around 11:00.
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
--- NOTE | 2022-11-10 18:26 | NUR ---
restraints were removed this afternoon for trial, brother has been in the room with him, he has been calm, cooperative with care, no further issues needing the restraints. he got up and wondered around the room. call light in reach.
[2022-11-11 04:32] VITALS: BP 151/75
[2022-11-11 05:32] LABS: Hematocrit 28.1 % (37.0-53.0); Hemoglobin 8.9 g/dL (13.5-17.5); Mean Corpuscular HGB 28.1 pg (26.0-34.0); Mean Corpuscular HGB Conc 31.7 g/dL (31.5-36.5); Mean Corpuscular Volume 89 fL (80-100); Mean Platelet Volume 9.2 fL (9.1-12.4); Platelet Count 271 K/mm3 (150-400); RDW Coefficient Variation 15.1 % (11.7-14.2); RDW Standard Deviation 48.8 fL (35.1-46.3); Red Blood Cell Count 3.17 M/mm3 (4.30-5.90); White Blood Cell Count 13.27 K/mm3 (4.00-11.30)
--- NOTE | 2022-11-11 05:50 | NUR ---
SHIFT SUMMARY 1:[address] PT HAS BEEN CALM AND COOPERATIVE WITH CARE AND MEDICATIONS THIS SHIFT. PT STILL NOT WEARING HIS O2, BUT DOES NOT SEEM TO BE STRUGGLING TO BREATHE. CALL LIGHT IN REACH AND SITTER AT BEDSIDE.
[2022-11-11 06:06] LABS: Albumin, Blood 2.4 g/dL (3.4-5.0); Anion Gap 10 mmol/L (6-16); Blood Urea Nitrogen 68 mg/dL (8-24); Bun/Creatinine Ratio 12.2 (12.0-20.0); CO2, Blood 26 mmol/L (21-32); Calcium, Blood 8.7 mg/dL (8.5-10.1); Chloride, Blood 101 mmol/L (98-108); Creatinine, Blood 5.57 mg/dL (0.60-1.20); Glomerular Filtration Rate 11 (60-); Glucose, Blood 109 mg/dL (70-99); Magnesium, Blood 2.3 mg/dL (1.6-2.4); Potassium, Blood 4.3 mmol/L (3.5-5.5); Sodium, Blood 137 mmol/L (136-145)
[2022-11-11 07:21] VITALS: BP 153/87
[2022-11-11 15:40] VITALS: BP 129/88
--- NOTE | 2022-11-11 16:45 | NUR ---
SHIFT SUMMARY NO ACUTE CHANGES THIS SHIFT. PT'S BROTHER HAS BEEN AT THE BS ALL SHIFT AND APPEARS TO REALLY CALM THE PT. HE HAS A 1:1 SITTER THAT HAS BEEN PRESENT IN THE ROOM ALL SHIFT. PT WORKED WITH PT THIS SHIFT AND HE REMAINS A SBA. HE NO LONGER HAS AN IV BUT AN ORDER FOR NO IV ACCESS IS IN PLACE. PT ALSO REMAINS ON A 1,000 ML FLUID RESTRICTION. PT AWAITING PLACEMENT. BED IN THE LOWEST POSITION, CALL LIGHT WITHIN REACH. WILL REPORT TO ONCOMING NURSE.
[2022-11-12] VITALS (16 sets, daily range): BP systolic 98–163; BP diastolic 51–786
[2022-11-12 04:59] LABS: Hematocrit 27.8 % (37.0-53.0); Hemoglobin 8.8 g/dL (13.5-17.5)
[2022-11-12 05:20] LABS: Albumin, Blood 2.5 g/dL (3.4-5.0); Anion Gap 13 mmol/L (6-16); Blood Urea Nitrogen 81 mg/dL (8-24); Bun/Creatinine Ratio 12.2 (12.0-20.0); CO2, Blood 24 mmol/L (21-32); Calcium, Blood 8.2 mg/dL (8.5-10.1); Chloride, Blood 100 mmol/L (98-108); Creatinine, Blood 6.64 mg/dL (0.60-1.20); Glomerular Filtration Rate 9 (60-); Glucose, Blood 121 mg/dL (70-99); Magnesium, Blood 2.5 mg/dL (1.6-2.4); Phosphorus, Blood 7.1 mg/dL (2.5-4.9); Potassium, Blood 4.8 mmol/L (3.5-5.5); Sodium, Blood 137 mmol/L (136-145)
--- NOTE | 2022-11-12 05:21 | NUR ---
SHIFT SUMMARY PT IS A&2-3 CONFUSION AND AGITATION THIS SHIFT WITH INAPROPRIATE CURSING AT STAFF, SPECIFICALLY THE CARTRIDGE LOADING OPERATOR SITTER ON UNTIL 12 AM PT SLEPT INTERMITTENTLY THROUGHOUT NIGHT, REFUSING TO USE OXYGEN, SATS REMAINED IN THE LOW 90'S, NO COMPLAINTS OF PAIN, CONTINUE POC
--- NOTE | 2022-11-12 17:25 | NUR ---
Met with pt and his brother Jack today. Pt's overal mental state is much improved, he is able to follow commands and carry on a conversation. Pt's brother Jack would like to continue coming to see pt more often, and will follow up with Izabel Guthrie when pt returns.
--- NOTE | 2022-11-12 17:43 | NUR ---
END OF SHIFT SUMMARY: PATIENT CALM AND COOPERATIVE THROUGHOUT THE SHIFT. PATIENT WAS ABLE TO MAKE HIS NEEDS KNOWN TO STAFF AND RECEPTIVE TO OPTIONS. PATIENT TOLERATED DIALYSIS WELL AND WAS COOPERATIVE WHEN AT DIALYSIS. PATIENT'S BROTHER, LAXMI AT BEDSIDE THROUGHOUT THE DAY. PATIENT WAS ROUNDED ON BY CARE MANAGEMENT AND BOTH WERE UPDATED ON THE PLAN OF CARE AND DISCHARGE PLAN. PATIENT WORKED WITH PT AND OT TODAY. PATIENT STABLE ON FEET AND ABLE TO PERFORM ADLS INDEPENDENTLY. PATIENT CONTINUES TO REFUSE NASAL CANNULA. PATIENT SPO2 WAS 91-94% AT REST. PATIENT DID HAVE SOME SHORTNESS OF BREATH WITH ACTIVITY THAT QUICKLY RESOLVED WITH REST.
[2022-11-13 05:10] LABS: Hemoglobin 8.4 g/dL (13.5-17.5)
[2022-11-13 05:31] LABS: Albumin, Blood 2.6 g/dL (3.4-5.0); Anion Gap 9 mmol/L (6-16); Blood Urea Nitrogen 66 mg/dL (8-24); Bun/Creatinine Ratio 11.8 (12.0-20.0); CO2, Blood 28 mmol/L (21-32); Calcium, Blood 8.1 mg/dL (8.5-10.1); Chloride, Blood 105 mmol/L (98-108); Creatinine, Blood 5.57 mg/dL (0.60-1.20); Glomerular Filtration Rate 11 (60-); Glucose, Blood 101 mg/dL (70-99); Magnesium, Blood 2.3 mg/dL (1.6-2.4); Phosphorus, Blood 6.4 mg/dL (2.5-4.9); Potassium, Blood 4.6 mmol/L (3.5-5.5); Sodium, Blood 142 mmol/L (136-145)
[2022-11-13 07:30] VITALS: BP 140/79
[2022-11-13] MEDS ORDERED: Acetaminophen650 M1 PO (15:35)
[2022-11-13] MEDS ORDERED: ENTRESTO 24 MG1 EACH PO (15:35)
[2022-11-13] MEDS ORDERED: TAMS.4ER PO (15:36)
--- NOTE | 2022-11-13 17:40 | NUR ---
DISCHARGE SUMMARY PT IS AxOx4. PLEASANT AND COOPERATIVE WITH CARE WITH WITHDRAWN AFFECT NOTED. PT IS BEING DISCHARGED HOME TODAY WITH HOME HEALTH REFERRAL. PT WAS GIVEN DC INSTRUCTIONS INCLUDING FOLLOW UP APPOINTMENT INFO, DC MEDICATION LIST, PERSONALIZED PATIENT EDUCATION AND INFO RE: RESUMING DIALYSIS NEXT DAY/ APPOINTMENT. PT VERBALIZES UNDERSTANDING AND DENIES FUTHER QUESTIONS AT THIS TIME. VITALS REVIEWED. PT WAS SAFELY ESCORTED OUT VIA WC WITH [facility] AND MET WITH [facility] FOR TRANSPORT HOME.
== END 2022-11-13 16:50 | disposition home health service (06) | DRG 299 ==
LOC: ER 15:19 → ERHOLD 19:50 → PCU 19:50 → MEDS 19:50 → PCU 20:50 → MEDS 11-09 11:27 → ENPENDDIS 11-13 16:27 → MEDS 11-13 16:50
PROVIDERS: Emergency Medicine; Internal Medicine; Internal Medicine Nephrology; Nurse Practitioner Acute Care; ADMIT Student in an Organized Health Care Education/Training Program
PROC: 30233N1 Transfusion of Nonautologous Red Blood Cells into Peripheral Vein, Percutaneous Approach (ICD-10-PCS; principal; 2022-11-06)
PROC: 5A0935A Assistance with Respiratory Ventilation, Less than 24 Consecutive Hours, High Flow/Velocity Cannula (ICD-10-PCS; 2022-11-07)
PROC: 5A1D70Z Performance of Urinary Filtration, Intermittent, Less than 6 Hours Per Day (ICD-10-PCS; 2022-11-08)
DX: I82.611 Acute embolism and thrombosis of superficial veins of right upper extremity (principal); G92.8 Other toxic encephalopathy; J96.21 Acute and chronic respiratory failure with hypoxia; N18.6 End stage renal disease; J18.9 Pneumonia, unspecified organism; I50.23 Acute on chronic systolic (congestive) heart failure; L03.113 Cellulitis of right upper limb; N25.81 Secondary hyperparathyroidism of renal origin; E87.1 Hypo-osmolality and hyponatremia; I42.0 Dilated cardiomyopathy; I13.2 Hypertensive heart and chronic kidney disease with heart failure and with stage 5 chronic kidney disease, or end stage renal disease; Z51.5 Encounter for palliative care; I48.0 Paroxysmal atrial fibrillation; E87.5 Hyperkalemia; E88.09 Other disorders of plasma-protein metabolism, not elsewhere classified; E83.51 Hypocalcemia; I27.21 Secondary pulmonary arterial hypertension; K21.9 Gastro-esophageal reflux disease without esophagitis; E83.39 Other disorders of phosphorus metabolism; I25.10 Atherosclerotic heart disease of native coronary artery without angina pectoris; F20.9 Schizophrenia, unspecified; I07.1 Rheumatic tricuspid insufficiency; K40.90 Unilateral inguinal hernia, without obstruction or gangrene, not specified as recurrent; E11.22 Type 2 diabetes mellitus with diabetic chronic kidney disease; R54 Age-related physical debility; R33.9 Retention of urine, unspecified; D63.1 Anemia in chronic kidney disease; I25.2 Old myocardial infarction; Z99.2 Dependence on renal dialysis; Z95.5 Presence of coronary angioplasty implant and graft; Z98.890 Other specified postprocedural states; Z99.81 Dependence on supplemental oxygen; Z79.01 Long term (current) use of anticoagulants; Z86.73 Personal history of transient ischemic attack (TIA), and cerebral infarction without residual deficits; Z79.899 Other long term (current) drug therapy; Z79.02 Long term (current) use of antithrombotics/antiplatelets; Z91.199 Patient's noncompliance with other medical treatment and regimen due to unspecified reason; Z78.1 Physical restraint status; Z91.158 Patient's noncompliance with renal dialysis for other reason
CPT/HCPCS: 36415; 36430; 51702; 71045; 80047; 80053; 80069; 81001; 82140; 82272; 82803; 83735; 83880; 84100; 84145; 85014; 85018; 85025; 85027; 86850; 86900; 86901; 86923; 87340; 93005; 93010; 93971; 94761; 94762; 96374; 97110; 97129; 97130; 97162; 97165; 97530; 99285-25; A9270; C9113; G0103; J0881; J2060; J2310; P9016

== ENCOUNTER 2022-11-30 05:54 | Emergency (ER) | payer OTHER ==
[~2022-11-30] VITALS: Ht 167.6 cm; Wt 83.9 kg
[~2022-11-30 05:54] MED LIST changes: +Acetaminophen650 M1 PO; +ENTRESTO 24 MG1 EACH PO
[2022-11-30 06:29] LABS: BASOPHILS ABSOLUTE AUTO 0.06 K/mm3 (0.00-0.23); BASOPHILS PERCENT AUTO 1 % (0-2); EOSINOPHILS ABSOLUTE AUTO 0.31 K/mm3 (0.00-0.68); EOSINOPHILS PERCENT AUTO 4 % (0-6); Hematocrit 25.3 % (37.0-53.0); Hemoglobin 7.7 g/dL (13.5-17.5); IMMATURE GRAN ABSOLUTE AUTO 0.06 K/mm3 (0.00-0.10); IMMATURE GRAN PERCENT AUTO 1 % (0-1); LYMPHOCYTES ABSOLUTE AUTO 0.84 K/mm3 (0.84-5.20); LYMPHOCYTES PERCENT AUTO 10 % (21-46); MONOCYTES ABSOLUTE AUTO 0.72 K/mm3 (0.16-1.47); MONOCYTES PERCENT AUTO 9 % (4-13); Mean Corpuscular HGB 27.4 pg (26.0-34.0); Mean Corpuscular HGB Conc 30.4 g/dL (31.5-36.5); Mean Corpuscular Volume 90 fL (80-100); Mean Platelet Volume 8.7 fL (9.1-12.4); NEUTROPHILS ABSOLUTE AUTO 6.39 K/mm3 (1.96-9.15); NEUTROPHILS PERCENT AUTO 76 % (41-73); Platelet Count 154 K/mm3 (150-400); RDW Standard Deviation 53.1 fL (35.1-46.3); Red Blood Cell Count 2.81 M/mm3 (4.30-5.90); White Blood Cell Count 8.38 K/mm3 (4.00-11.30)
[2022-11-30 06:56] LABS: Magnesium, Blood 2.3 mg/dL (1.6-2.4)
[2022-11-30 07:00] LABS: Bun/Creatinine Ratio 9.2 (12.0-20.0); Calcium, Blood 7.7 mg/dL (8.5-10.1); Creatinine, Blood 9.26 mg/dL (0.60-1.20); Potassium, Blood 4.9 mmol/L (3.5-5.5)
[2022-11-30 12:00] VITALS: BP 173/89
== END 2022-11-30 12:34 | disposition short-term general hospital (02) ==
LOC: ER 05:54
PROVIDERS: Emergency Medicine
DX: S12.500A Unspecified displaced fracture of sixth cervical vertebra, initial encounter for closed fracture (principal); S12.600A Unspecified displaced fracture of seventh cervical vertebra, initial encounter for closed fracture; S01.01XA Laceration without foreign body of scalp, initial encounter; S80.12XA Contusion of left lower leg, initial encounter; W07.XXXA Fall from chair, initial encounter; Z79.899 Other long term (current) drug therapy; I50.9 Heart failure, unspecified; N18.6 End stage renal disease; I25.10 Atherosclerotic heart disease of native coronary artery without angina pectoris; I48.0 Paroxysmal atrial fibrillation; I13.2 Hypertensive heart and chronic kidney disease with heart failure and with stage 5 chronic kidney disease, or end stage renal disease; Z23 Encounter for immunization
CPT/HCPCS: 70450; 72125; 73590; 80048; 82947; 83735; 85025; 90471; 90714; 96374; 96376; 99285-25; A9270; J1170